=== PATIENT | male | born 1940 | race Caucasian/White ===

== ENCOUNTER 2022-11-16 08:51 | Outpatient (RCR) | payer MEDICARE, SELFPAY ==
--- NOTE | ~2022-11-16 | XR_ITS ---
EXAMINATION: XR FOOT, LEFT CLINICAL INFORMATION: Healing wound, rule out osteomyelitis COMPARISON: None available. TECHNIQUE: AP, lateral, and oblique views of the left foot. FINDINGS: No fracture or dislocation. Well corticated osseous fragment adjacent to the head of the first metatarsal may reflect sequelae of remote avulsion injury. Cortical erosion is noted along the first MTP joint involving the medial cuneiform which could be seen in setting of erosive arthropathy. Generalized osteopenia. Moderate degenerative changes of the foot with osteophytosis of the dorsal midfoot and interphalangeal joints and large plantar calcaneal spurs and Achilles tendon enthesophytes. No periosteal reaction, focal cortical erosion or periostitis to favor osteomyelitis however MRI would be more sensitive for evaluation. No joint effusion. Atherosclerotic vascular calcification. Soft tissue swelling along the medial aspect of the first metatarsophalangeal joint. XR/XR foot LT min 3V IMPRESSION: 1. Cortical erosion is noted along the first MTP joint involving the medial cuneiform which could be seen in setting of erosive arthropathy. 2. No periosteal reaction, focal cortical erosion or periostitis to favor osteomyelitis however MRI would be more sensitive for evaluation. 3. Soft tissue swelling along the medial aspect of the first metatarsophalangeal joint. 4. Generalized osteopenia. 5. Moderate degenerative changes of the foot. 6. Atherosclerotic vascular calcification.
--- NOTE | ~2022-11-16 | XR_ITS ---
EXAMINATION: XR ANKLE, LEFT CLINICAL INFORMATION: Left heel wound COMPARISON: Previous left foot x-ray October 2022 TECHNIQUE: AP, lateral, and mortise views of the left ankle. FINDINGS: Bone alignment is normal. No fracture or dislocation. The ankle mortise is normal. There are large calcaneal spur spurs at the Achilles tendon insertion plantar calcaneus. There is slight cortical irregularity along the posterior superior calcaneus seen on the lateral view just anterior to the spur..There is soft tissue arterial calcification. There is soft tissue loss over the upper calcaneal. XR/XR ankle LT min 3V IMPRESSION: Large calcaneal spurs at the Achilles tendon insertion and plantar calcaneus. Slight cortical irregularity along the posterior superior calcaneus seen on the lateral view just anterior to the spur similar to previous exam.
== END 2023-03-25 16:00 | disposition home or self-care (01) ==
LOC: HO.WCC 08:51
PROVIDERS: PCP Pediatrics; Referring Provider Podiatrist; Visit Provider Physician Assistant
DX: E11.621 Type 2 diabetes mellitus with foot ulcer (principal); E11.51 Type 2 diabetes mellitus with diabetic peripheral angiopathy without gangrene; L97.426 Non-pressure chronic ulcer of left heel and midfoot with bone involvement without evidence of necrosis; L97.516 Non-pressure chronic ulcer of other part of right foot with bone involvement without evidence of necrosis; M65.072 Abscess of tendon sheath, left ankle and foot; E11.69 Type 2 diabetes mellitus with other specified complication; M86.172 Other acute osteomyelitis, left ankle and foot; E11.40 Type 2 diabetes mellitus with diabetic neuropathy, unspecified; I11.0 Hypertensive heart disease with heart failure; I50.9 Heart failure, unspecified; Z89.411 Acquired absence of right great toe
CPT/HCPCS: 11042; 11043; 11044; 73610; 73630; 88304; 88305; 88307; 88311; 97597; 99214

== ENCOUNTER 2023-02-22 09:07 | Inpatient (IN) | payer MEDICARE, SELFPAY ==
--- NOTE | ~2023-02-22 | XR_ITS ---
EXAMINATION: XR ANKLE LEFT XR FOOT LEFT CLINICAL INFORMATION: Chronic wound. Evaluate for osteomyelitis. COMPARISON: Radiographs from 01/04/2023 TECHNIQUE: Left ankle, 3 views Left foot, 4 views FINDINGS: Ankle: There are peripheral vascular calcifications. Soft tissue wound posterior to the calcaneus in region of distal Achilles insertion. The underlying bone is grossly intact. There is no overt erosion or new sclerotic change within the calcaneus. Again noted are prominent enthesophytes of the calcaneus. Soft tissues are swollen around the ankle. The ankle mortise is intact. The talar dome is well-positioned within the mortise. The tibiotalar joint space is maintained. Old well-corticated ossicles project distal to the medial malleolus. Foot: No acute osseous abnormality. There appears to be chronic mild hindfoot valgus deformity. Mild osteoarthritis of talonavicular joint. Osteophytes also noted at margins of navicular-cuneiform and first tarsometatarsal joints. Mild osteoarthritis of great toe metatarsophalangeal joint. Incidentally noted is an old small well-corticated ossicle medial aspect of first metatarsal head. No erosions or periostitis. XR/XR ankle LT min 3V IMPRESSION: * No radiographic evidence of osteomyelitis in the left ankle or foot. * A soft tissue wound projects over region of the bursal projection of the calcaneus (region of the Achilles insertion). * Soft tissues are swollen around the ankle and proximal foot. * There is osteoarthritis of several joints, as noted above.
--- NOTE | ~2023-02-22 | US_ITS ---
EXAMINATION: Noninvasive assessment of the left lower extremities with ARTERIAL DUPLEX. CLINICAL INFORMATION: Nonhealing ulceration of the left foot TECHNIQUE: Duplex Doppler techniques with waveform analysis and measurement of velocities in the left common femoral, profunda femoris, superficial femoral, popliteal and tibial arteries were performed. COMPARISON: None FINDINGS: DIRECT DUPLEX DOPPLER FINDINGS: LEFT LEG: Common femoral artery: 103 cm/s, phasicity: Triphasic, mild calcified plaque Profunda femoris artery: 84 cm/s, phasicity: Biphasic Superficial femoral artery (proximal): 123 cm/s, phasicity: Triphasic Superficial femoral artery (mid): 73 cm/s, phasicity: Triphasic Superficial femoral artery (distal): 105 cm/s, phasicity: Triphasic, mild noncalcified plaque Popliteal artery: 110 cm/s, phasicity: Triphasic, diffuse calcified plaque Posterior tibial artery: 203 cm/s, phasicity: Triphasic. Distal segment is occluded Peroneal artery: 279 cm/s, phasicity: Monophasic US/US arterial duplex LE LT IMPRESSION: Scattered atherosclerotic plaque with patent arterial flow in the femoral and popliteal arteries. Elevated velocities with atherosclerotic plaque in the posterior tibial and peroneal arteries. The distal posterior tibial artery is occluded
--- NOTE | ~2023-02-22 | XR_ITS ---
EXAMINATION: XR ANKLE LEFT XR FOOT LEFT CLINICAL INFORMATION: Chronic wound. Evaluate for osteomyelitis. COMPARISON: Radiographs from 01/04/2023 TECHNIQUE: Left ankle, 3 views Left foot, 4 views FINDINGS: Ankle: There are peripheral vascular calcifications. Soft tissue wound posterior to the calcaneus in region of distal Achilles insertion. The underlying bone is grossly intact. There is no overt erosion or new sclerotic change within the calcaneus. Again noted are prominent enthesophytes of the calcaneus. Soft tissues are swollen around the ankle. The ankle mortise is intact. The talar dome is well-positioned within the mortise. The tibiotalar joint space is maintained. Old well-corticated ossicles project distal to the medial malleolus. Foot: No acute osseous abnormality. There appears to be chronic mild hindfoot valgus deformity. Mild osteoarthritis of talonavicular joint. Osteophytes also noted at margins of navicular-cuneiform and first tarsometatarsal joints. Mild osteoarthritis of great toe metatarsophalangeal joint. Incidentally noted is an old small well-corticated ossicle medial aspect of first metatarsal head. No erosions or periostitis. XR/XR foot LT 2V IMPRESSION: * No radiographic evidence of osteomyelitis in the left ankle or foot. * A soft tissue wound projects over region of the bursal projection of the calcaneus (region of the Achilles insertion). * Soft tissues are swollen around the ankle and proximal foot. * There is osteoarthritis of several joints, as noted above.
--- NOTE | ~2023-02-22 | MR_ITS ---
EXAMINATION: MR ANKLE WITHOUT AND WITH CONTRAST, LEFT CLINICAL INFORMATION: Elevated CRP/ESR in backdrop chronic cellulitis. COMPARISON: Radiograph dated 02/22/2023. TECHNIQUE: MRI of the ankle was performed before and after the intravenous administration of 6.5 mL gadolinium on a high-field scanner. FINDINGS: ACHILLES TENDON: The Achilles tendon is thickened at its mid substance and distal extent, measuring up to 1.3 cm AP, consistent with tendinosis. There is a superficial partial tear of the lateral margin of the tendon involving approximately 20 percent of the tendon cross-section, occurring at the deep margin of the soft tissue wound. Enthesopathic spurring is present at the Achilles tendon insertion on the calcaneus. The soft tissues surrounding the Achilles are swollen and edematous, consistent with cellulitis and deep infection related to the adjacent wound. There is a complex peripherally enhancing fluid collection surrounding the Achilles tendon over a region measuring 6 cm in length and 3 x 1.5 cm in cross-section, inclusive of the Achilles tendon, consistent with an abscess. OTHER TENDONS: There is fatty replacement of the imaged portion of the distal ankle musculature including the flexor hallucis longus muscle. A chronic high-grade tear of the posterior tibial tendon is evident at the level of the distal femoral metaphysis, involving at least three quarters of the tendon thickness with marked attenuation of the tendon over a 5 cm segment centered at the level of the medial malleolus. The other medial flexor tendons are intact. Intact peroneal and extensor tendons. LIGAMENTS: Anterior talofibular ligament is diminutive, most consistent with chronic changes of prior partial tear. Calcaneofibular and posterior talofibular ligaments are intact. Distal tibiofibular ligaments are normal. The deltoid ligament is scarred with small chronic osseous fragments, consistent with a chronic partial tear. The spring ligament is markedly thinned and irregular, likely partially torn near the navicular insertion. BONE AND ARTICULAR CARTILAGE: Intense marrow edema signal is evident at the posterior/lateral margin of the calcaneal tuberosity deep to the skin wound with areas of diminished T1 signal, and consistent with osteomyelitis. Enthesopathic spurring is present at the Achilles tendon insertion in this region. There is mild talocrural osteoarthritis with cartilage loss and subcortical cystic change at the lateral aspect of the joint. Mild osteoarthritis is also present in the posterior facet of the subtalar joint. Moderate to severe osteoarthritis is present at the articulation between the lateral cuneiform and cuboid and the navicular and cuboid. Chronic changes of a fibrous coalition in this region is possible. Osseous fragmentation is evident at the sinus tarsi and is chronic in nature. Plantar valgus angulation is evident in the foot. [id number] osteoarthritis is noted in the naviculocuneiform and tarsometatarsal joints with prominent dorsal osteophytes. JOINT FLUID AND SOFT TISSUES: Synovial inflammation is evident at the posterior recess of the subtalar joint, likely reactive to the adjacent infection. No significant effusion. Diffuse edema signal is evident in the soft tissues at the ankle. As noted above, there is a skin wound at the posterolateral aspect of the ankle and hindfoot. This measures 0.5 x 4 cm in area with a depth of up to 8 mm, extending to the level of the underlying bone and Achilles tendon, associated with the aforementioned abscess and osteomyelitis. Intrinsic foot musculature is atrophic with fatty replacement and increased T2 signal. PLANTAR FASCIA: Thickened with intermediate signal intensity at the plantar fascial origin, consistent with acute on chronic fasciitis. 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 Tarsal tunnel is unremarkable. MR/MR ankle LT wo/w con IMPRESSION: 1. Soft tissue wound at the posterolateral aspect of the ankle and hindfoot with underlying osteomyelitis at the calcaneal tuberosity, partial tear of the Achilles, and a peritendinous abscess at the Achilles tendon. 2. 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 3. Chronic partial tears of the deltoid and spring ligaments. 4. 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
[2023-02-22 09:09] VITALS: BP 160/80; PULSE 101; RESP 18; TEMP 36.6; O2SAT 97; BMI 20.4
--- NOTE | 2023-02-22 09:44 | ED_ITS ---
HPI - General Adult General Chief complaint: Wound/Laceration Stated complaint: sent from wound center, L foot wound Time Seen by Provider: 02/22/23 09:23 Source: patient Mode of arrival: ambulatory Limitations: no limitations History of Present Illness HPI narrative: 82 yold male with pmh of DM presents to the ED chronic left ankle infection not improving with oral antibiotics ( cephalexin and doxycline). Patient states he was never given doxycycline only receives Keflex. Patient sent by wound clinic to be admitted for IV antibiotics and to have infectious disease consult. Also recommend wound culture to be done. Patient states glucose has been slight elevated with this infection. left ankle and lower leg has been red. Related Data Home Medications Medication Instructions Recorded Confirmed amlodipine 10 mg tablet 10 mg PO DAILY 02/22/23 02/22/23 aspirin 81 mg chewable tablet 81 mg PO DAILY 02/22/23 02/22/23 cefuroxime axetil 250 mg tablet 250 mg PO BID 02/22/23 02/22/23 cholecalciferol (vitamin D3) 125 125 mcg PO DAILY 02/22/23 02/22/23 mcg (5,000 unit) tablet lisinopril 40 mg tablet 40 mg PO DAILY 02/22/23 02/22/23 metformin 1,000 mg tablet 1,000 mg PO BID 02/22/23 02/22/23 pravastatin 40 mg tablet 40 mg PO DAILY 02/22/23 02/22/23 tamsulosin 0.4 mg capsule 0.4 mg PO BEDTIME 02/22/23 02/22/23 Allergies Allergy/AdvReac Type Severity Reaction Status Date / Time codeine AdvReac Dizziness Verified 02/22/23 09:16 Review of Systems Review of Systems: left ankle/left lower leg redness with chronic wound Yes all other systems are reviewed and are negative [facility] Past Medical History Medical History Diabetes Social History Social History Alcohol intake: never Patient Tobacco Use Status: Never used Tobacco Smoked in Last 30 Days: No Use of substances other than those prescribed or required for medical reasons: No Advance Directives: No Advance Directives Information Provided: Yes Nutrition Risks: No Nutritional Risk Physical Exam ED Vital Signs: Vital Signs - 24 hr 02/22/23 09:09 02/22/23 10:58 Temperature 97.8 F 98.3 F Pulse Rate 101 H 88 Respiratory Rate 18 16 Blood Pressure 160/80 H 139/63 Pulse Oximetry 97 97 Oxygen Delivery Method Room Air Room Air BMI result Body Mass Index 20.4 Const General: cooperative, healthy appearing, comfortable, no acute distress, well developed, alert, awake and Physically active Orientation/consciousness: oriented to person, oriented to place, oriented to time and patient oriented x3 [facility] Head: Yes normal to inspection, Yes No palpable skull fracture present, Yes normocephalic, Yes atraumatic and No abrasion Eyes General: appearance normal, both eyes and all related structures Neck Neck: Yes normal visual inspection, Yes full ROM, Yes no lymphadenopathy, Yes no meningeal signs, Yes trachea midline, Yes supple, No anterior neck swelling and No tender Chest Chest palpation & inspection: normal inspection of the chest and normal palpation of entire chest wall Resp Effort & Inspection: normal respiratory effort and able to speak in complete sentences Auscultation: clear to auscultation bilaterally Cardio Jugular venous distension: no JVD Heart sounds: S1 normal heart sound present and S2 normal heart sound present GI Inspection: Yes normal to inspection and No abdominal wall ecchymosis Palpation (GI): Soft to palpation, not firm, nontender, no guarding and not rigid General: No CVA tenderness and Yes no CVA tenderness Back/Spine/Pelvis Back: no CVA tenderness, No CVA tenderness and No back tenderness Skin General skin exam: no rashes or lesions noted and elasticity normal Neuro General: oriented to person, oriented to place, oriented to time, patient oriented x3, gait normal, tone normal, moves all extremities, Normal light touch and pain sensation, no meningeal signs, no focal motor deficits, CN's II-XI intact bilaterally and normal sensation to monofilament Extrem Other: Psych Appearance: grossly normal, well kempt and not disheveled Course Reevaluation(s) Reevaluation #1: Labs drawn repeat x-ray ordered. Will contact hospitalist Time: 09:30 Reevaluation #2: Case discussed with hospitalist Dr. Hopkins recommend starting patient on van comycin and Zosyn. ESR CRP elevated. Awaiting x-ray results. Lactic 2.4 Time: 10:45 Medications Administered Generic Name Dose Route Start Last Admin Trade Name Freq PRN Reason Stop Dose Admin Enoxaparin Sodium 40 mg 02/22/23 12:00 02/22/23 12:41 Enoxaparin Sodium 40 Mg/0.4 Ml Syringe SUBCUT 40 mg Q24H MORGAN Administration Discontinued Medications Generic Name Dose Route Start Last Admin Trade Name Freq PRN Reason Stop Dose Admin Sodium Chloride 1,000 mls @ 999 mls/hr 02/22/23 10:26 02/22/23 12:26 Ns IV 02/22/23 11:26 Infused .Q1H1M STA Infusion Sodium Chloride 1,000 mls @ 999 mls/hr 02/22/23 10:27 02/22/23 12:26 Ns IV 02/22/23 11:27 Infused .Q1H1M STA Infusion Piperacillin Sod/Tazobactam 50 mls @ 100 mls/hr 02/22/23 10:59 02/22/23 12:26 Sod 3.375 gm/ Sodium Chloride IV 02/22/23 11:28 Infused ONCE ONE Infusion Vancomycin HCl 1,500 mg/ 500 mls @ 333.333 mls/hr 02/22/23 11:01 02/22/23 14:04 Sodium Chloride IV 02/22/23 12:30 Infused ONCE ONE Infusion Medical Decision Making Medical Decision Making MDM Narrative: 82-year-old male with left foot leg cellulitis wound not responding to antibiotics with known chronic osteomyelitis. Patient sent from Wound Clinic for IV antibiotics. ESR CRP elevated. Patient will be admitted for MRI and infection disease consultation. X-ray negative for osteomyelitis. Patient started on IV antibiotics. Differential Diagnosis Differential Diagnoses: The differential diagnosis associated with the presentation includes (Cellulitis, wound infection, diabetic foot, osteomyelitis.) Admission/Observation Consideration of admission/observation: Escalation of care including admission/observation considered Consult Healthcare Provider Management of the patient was discussed with: Hospitalist (Dr. Hopkins) Lab Data [facility] [place] Lab Attestation statement: I reviewed the patient's lab results. 02/22/23 09:53 02/22/23 09:53 Labs: Lab Results 02/22/23 02/22/23 02/22/23 Range/Units 09:53 09:53 09:53 WBC 10.4 (4.8-10.8) X10*3/uL RBC 3.85 L (4.60-5.80) X10*6/uL Hgb 12.0 L (14.0-18.0) g/dl Hct 35.2 L (42.0-52.0) % MCV 91.4 (80.0-98.0) fL MCH 31.2 (27.0-33.0) pg MCHC 34.1 (31.0-36.0) g/dl RDW 12.0 (11.0-16.0) % Plt Count 434 H (160-400) X10*3/uL MPV 9.2 L (9.4-12.4) fL Immature Gran % (Auto) 2.9 H (0.0-0.4) % Neut % (Auto) 78.0 H (45-73) % Lymph % (Auto) 11.3 L (20-40) % [place] % (Auto) 6.5 (2-11) % Eos % (Auto) 0.9 (0-4) % Baso % (Auto) 0.4 (0-2) % Lymph # (Auto) 1.2 (1.2-4.9) X10*3/uL [place] # (Auto) 0.7 (0.1-1.2) X10*3/uL Eos # (Auto) 0.1 (0.0-0.4) X10*3/uL Baso # (Auto) 0.0 (0.0-0.2) X10*3/uL Abs Immat Gran (auto) 0.30 H (0.00-0.03) X10*3/uL Absolute Neuts (auto) 8.1 (2.0-8.3) x10*3/uL Absolute Nucleated RBC 0.000 (0.0-0.012) X10*3/uL Nucleated RBC % (auto) 0.0 (0.0-0.2) /100WBC ESR 76 H (0-15) MM/HR Sodium 134 L (135-145) mmol/L Potassium 4.0 (3.3-5.1) mmol/L Chloride 98 (96-108) mmol/L Carbon Dioxide 26 (22-29) mmol/L Anion Gap 14 (12-20) BUN 17 H (9-16) mg/dL Creatinine 0.79 (0.5-1.4) mg/dL Estim Creat Clear Calc 65.6 Estimated GFR > 60 Random Glucose 262 H (60-115) mg/dL Lactic Acid (0.5-2.0) mmol/L Calcium 9.6 (8.4-10.2) mg/dL Total Bilirubin 0.3 (0.0-1.0) mg/dL AST 10 (5-37) U/L ALT 7 (0-40) U/L Alkaline Phosphatase 68 (39-117) U/L C-Reactive Protein 5.65 H (< or = 0.50) mg/dL Total Protein 7.6 (6.5-8.0) g/dL Albumin 3.4 L (3.5-5.0) g/dL 02/22/23 Range/Units 09:53 WBC (4.8-10.8) X10*3/uL RBC (4.60-5.80) X10*6/uL Hgb (14.0-18.0) g/dl Hct (42.0-52.0) % MCV (80.0-98.0) fL MCH (27.0-33.0) pg MCHC (31.0-36.0) g/dl RDW (11.0-16.0) % Plt Count (160-400) X10*3/uL MPV (9.4-12.4) fL Immature Gran % (Auto) (0.0-0.4) % Neut % (Auto) (45-73) % Lymph % (Auto) (20-40) % [place] % (Auto) (2-11) % Eos % (Auto) (0-4) % Baso % (Auto) (0-2) % Lymph # (Auto) (1.2-4.9) X10*3/uL [place] # (Auto) (0.1-1.2) X10*3/uL Eos # (Auto) (0.0-0.4) X10*3/uL Baso # (Auto) (0.0-0.2) X10*3/uL Abs Immat Gran (auto) (0.00-0.03) X10*3/uL Absolute Neuts (auto) (2.0-8.3) x10*3/uL Absolute Nucleated RBC (0.0-0.012) X10*3/uL Nucleated RBC % (auto) (0.0-0.2) /100WBC ESR (0-15) MM/HR Sodium (135-145) mmol/L Potassium (3.3-5.1) mmol/L Chloride (96-108) mmol/L Carbon Dioxide (22-29) mmol/L Anion Gap (12-20) BUN (9-16) mg/dL Creatinine (0.5-1.4) mg/dL Estim Creat Clear Calc Estimated GFR Random Glucose (60-115) mg/dL Lactic Acid 2.4 H* (0.5-2.0) mmol/L Calcium (8.4-10.2) mg/dL Total Bilirubin (0.0-1.0) mg/dL AST (5-37) U/L ALT (0-40) U/L Alkaline Phosphatase (39-117) U/L C-Reactive Protein (< or = 0.50) mg/dL Total Protein (6.5-8.0) g/dL Albumin (3.5-5.0) g/dL Independent Interpretation I performed an independent interpretation of an: Plain X-Ray Radiology Impression Discussion of test interpretation with radiology: I have reviewed the radiologist's reading. Independent Historian Clinical information obtained from an independent historian. History obtained from or confirmed by: Spouse and Other (Wound clinic) Prescription Management I considered prescription management with: Antibiotic Discharge Plan Discharge Clinical Impression: Diabetic foot ulcer, Cellulitis, Wound infection Patient Disposition: Admitted As Inpatient
[2023-02-22 10:02] LABS: MANUAL DIFF FLAG NO
[2023-02-22 10:07] LABS: Basophils Percent Auto 0.4 % (0-2); Eosinophils Absolute Auto 0.1 X10*3/uL (0.0-0.4); Eosinophils Percent Auto 0.9 % (0-4); Hematocrit 35.2 % (42.0-52.0); Imm Gran Pct Auto 2.9 % (0.0-0.4); Lymphocytes Absolute Auto 1.2 X10*3/uL (1.2-4.9); Lymphocytes Percent Auto 11.3 % (20-40); Mean Corpuscular HGB Conc 34.1 g/dl (31.0-36.0); Mean Corpuscular Hemoglobin 31.2 pg (27.0-33.0); Mean Corpuscular Volume 91.4 fL (80.0-98.0); Mean Platelet Volume 9.2 fL (9.4-12.4); Monocytes Absolute Auto 0.7 X10*3/uL (0.1-1.2); Monocytes Percent Auto 6.5 % (2-11); Neutrophils Absolute Auto 8.1 x10*3/uL (2.0-8.3); Platelet Count 434 X10*3/uL (160-400); Red Blood Count 3.85 X10*6/uL (4.60-5.80); White Blood Count 10.4 X10*3/uL (4.8-10.8)
[2023-02-22 10:26] LABS: Lactic Acid 2.4 mmol/L (0.5-2.0)
[2023-02-22 10:28] LABS: Alanine Aminotransferase 7 U/L (0-40); Albumin Level 3.4 g/dL (3.5-5.0); Alkaline Phosphatase 68 U/L (39-117); Anion Gap 14 (12-20); Aspartate Amino Transferase 10 U/L (5-37); Bilirubin Total 0.3 mg/dL (0.0-1.0); Blood Urea Nitrogen 17 mg/dL (9-16); C Reactive Protein 5.65 mg/dL (< or = 0.50); Calcium 9.6 mg/dL (8.4-10.2); Carbon Dioxide 26 mmol/L (22-29); Chloride 98 mmol/L (96-108); Creatinine Clr Calc Pharmacy 65.6; Estimated Glomerular Filt Rate > 60; Glucose Random 262 mg/dL (60-115); Sodium 134 mmol/L (135-145); Total Protein 7.6 g/dL (6.5-8.0)
[2023-02-22] MEDS: 0.9 % Sodium Chloride 1,000 ML 999 ML IV ×2 (10:55→10:56)
[2023-02-22 10:56] LABS: Erythrocyte Sedimentation Rate 76 MM/HR (0-15)
[2023-02-22 10:58] VITALS: BP 139/63; PULSE 88; RESP 16; TEMP 36.8; O2SAT 97
--- NOTE | 2023-02-22 11:01 | PC.NURSE ---
Addendum entered by Holly Miller 02/22/23 11:18: wound on right foot is on second toe Original Note: pt aox4, coming from wound clinic with diabetic foot wound on bottom and sidof left foot. additional small wound on right 1st toe is bandaged. wound clinic sent pt for IV antibiotics. fluids infusing per oct. drum drier on, will ctm
--- NOTE | 2023-02-22 11:08 | PM.IMHP ---
History of Present Illness Date of Service: 02/22/23 Attending physician on admission: Kamari Hopkins Chief Complaint: Left ankle wound Pt is an 82-year-old male with a PMH significant for?insulin-dependent diabetes type 2, HTN, HLD, and peripheral neuropathy in right leg who presents to the ED from Wound Care Clinic for evaluation of non healing diabetic wound of left heel concerning for osteomyelitis. Patient originally developed wound in October and has been seeing wound care clinic weekly since then. Patient had been on cephalexin and then recently prescribed doxycycline, however patient states that this was never filled by the pharmacy and he has thus not started taking it. Patient notes redness to the skin around heel and foot and extending up lower leg, new for the past week or so. Lower leg swelling which had been stable since wound. Patient had one prior wound on the 1st digit of his right foot, secondary to cutting off a callus with a razor blade. 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 Patient notes that during that time his hospital stay was prolonged due to hypotension. Patient and not clear if this was due to an adverse reaction to IV antibiotics, but patient does not carry any known allergy to antibiotics. Otherwise patient has not had any other chronic diabetic foot wounds. Patient also had vascular surgery on his left lower leg on December 17 at [facility]. Patient says surgeon was pleased with the amount of vascular flow that was reestablished. Patient complains of chronic left foot and ankle pain and chronic right leg neuropathy. Patient also has stable, chronic shortness of breath with exertion. Patient denies any acute systemic symptoms: No fever, chills, nausea, vomiting. No chest pain/pressure, palpitations. Denies abdominal pain. In the ED patient was afebrile and hemodynamically stable. Labs were significant for H&H of 12.0/35.2, ESR 76, CRP 5.65, lactic acid 2.4, random glucose 262. X-ray of left foot and ankle showed no radiographic evidence of osteomyelitis in the left ankle or foot, which did show soft tissues swollen right ankle and proximal foot. Pt was treated with 2 L normal saline, vanc and Zosyn. Pt will be admitted to the hospital for treatment further evaluation of chronic diabetic foot ulcer concerning for osteomyelitis. Review of Systems Review of Systems: Left heel wound since October Chronic left ankle and foot pain since October Redness of skin around ankle x1 week Chronic SOB No fever, chills, nausea, vomiting, diarrhea Denies chest pain/pressure, palpitations Yes all other systems are reviewed and are negative [facility] Medical History Diabetes Social History Alcohol intake: never Patient Tobacco Use Status: Never used Tobacco Smoked in Last 30 Days: No Use of substances other than those prescribed or required for medical reasons: No Advance Directives: No Advance Directives Information Provided: Yes Nutrition Risks: No Nutritional Risk Meds Allergies Allergy/AdvReac Type Severity Reaction Status Date / Time codeine AdvReac Dizziness Verified 02/22/23 09:16 Active Medications: Current Medications Sodium Chloride (Ns) 1,000 mls @ 999 mls/hr IV .Q1H1M STA Stop: 02/22/23 11:26 Last Admin: 02/22/23 10:55 Dose: 999 mls/hr Sodium Chloride (Ns) 1,000 mls @ 999 mls/hr IV .Q1H1M STA Stop: 02/22/23 11:27 Last Admin: 02/22/23 10:56 Dose: 999 mls/hr Piperacillin Sod/Tazobactam (Sod 3.375 gm/ Sodium Chloride) 50 mls @ 100 mls/hr IV ONCE ONE Stop: 02/22/23 11:28 Vancomycin HCl 1,500 mg/ (Sodium Chloride) 500 mls @ 333.333 mls/hr IV ONCE ONE Stop: 02/22/23 12:30 Pharmacy Consult (Consult Rx Vancomycin Dosing) 1 each MISCELLANE DAILY PRN PRN Reason: Consult order Home Medications Medication Instructions Recorded Confirmed Last Taken Type amlodipine 10 mg tablet 10 mg PO DAILY 02/22/23 02/22/23 02/22/23 History aspirin 81 mg chewable tablet 81 mg PO DAILY 02/22/23 02/22/23 02/22/23 History cefuroxime axetil 250 mg tablet 250 mg PO BID 02/22/23 02/22/23 02/22/23 History cholecalciferol (vitamin D3) 125 125 mcg PO DAILY 02/22/23 02/22/23 02/22/23 History mcg (5,000 unit) tablet lisinopril 40 mg tablet 40 mg PO DAILY 02/22/23 02/22/23 02/22/23 History metformin 1,000 mg tablet 1,000 mg PO BID 02/22/23 02/22/23 02/22/23 History pravastatin 40 mg tablet 40 mg PO DAILY 02/22/23 02/22/23 02/22/23 History tamsulosin 0.4 mg capsule 0.4 mg PO BEDTIME 02/22/23 02/22/23 02/21/23 History Physical Exam Vital Signs and Narrative: Vital Signs: Last Vital Signs Temp 98.3 F 02/22/23 10:58 Pulse 88 02/22/23 10:58 Resp 16 02/22/23 10:58 BP 139/63 02/22/23 10:58 Pulse Ox 97 02/22/23 10:58 O2 Del Method Room Air 02/22/23 10:58 BMI result Body Mass Index 20.4 Constitutional: Alert, in no acute distress. Mental Status: Oriented to person, place and time. Eyes: Pupils are equal, round, and reactive to light. Ear, Nose, and Throat: Oropharynx clear, mucous membranes moist. Ears and nose without deformities. Trachea midline. Respiratory: Clear to auscultation bilaterally. No wheezing, rales, or rhonchi. Cardiovascular: S1, S2 regular. No murmurs, rubs, or gallops. Gastrointestinal: Abdomen soft, non-tender, non-distended. Normal bowel sounds. Neurologic: Cranial nerves II-XII are grossly intact bilaterally. No focal neurological deficits. Moves all extremities spontaneously. Extremities: 1+ pitting edema of left lower leg. Open left heel wound with overlying area of erythema, non-draining, non-malodorous. Non-open wound on the See pictures below. Psychiatric: Normal mood and affect. Results Labs 02/22/23 09:53 02/22/23 09:53 Labs: Laboratory Results - last 24 hr 02/22/23 02/22/23 02/22/23 09:53 09:53 09:53 MCV 91.4 MCH 31.2 MCHC 34.1 RDW 12.0 Plt Count 434 H MPV 9.2 L Immature Gran % (Auto) 2.9 H Neut % (Auto) 78.0 H Lymph % (Auto) 11.3 L [place] % (Auto) 6.5 Eos % (Auto) 0.9 Baso % (Auto) 0.4 Lymph # (Auto) 1.2 [place] # (Auto) 0.7 Eos # (Auto) 0.1 Baso # (Auto) 0.0 Abs Immat Gran (auto) 0.30 H Absolute Neuts (auto) 8.1 Absolute Nucleated RBC 0.000 Nucleated RBC % (auto) 0.0 ESR 76 H Anion Gap 14 Estim Creat Clear Calc 65.6 Estimated GFR > 60 Random Glucose 262 H Lactic Acid Calcium 9.6 Total Bilirubin 0.3 AST 10 ALT 7 Alkaline Phosphatase 68 C-Reactive Protein 5.65 H Total Protein 7.6 Albumin 3.4 L 02/22/23 09:53 MCV MCH MCHC RDW Plt Count MPV Immature Gran % (Auto) Neut % (Auto) Lymph % (Auto) [place] % (Auto) Eos % (Auto) Baso % (Auto) Lymph # (Auto) [place] # (Auto) Eos # (Auto) Baso # (Auto) Abs Immat Gran (auto) Absolute Neuts (auto) Absolute Nucleated RBC Nucleated RBC % (auto) ESR Anion Gap Estim Creat Clear Calc Estimated GFR Random Glucose Lactic Acid 2.4 H* Calcium Total Bilirubin AST ALT Alkaline Phosphatase C-Reactive Protein Total Protein Albumin Assessment and Plan (1) Diabetic foot ulcer: Status: Acute (2) Cellulitis: Status: Acute Plan Pt is an 82-year-old male with a PMH significant for?voj-pwpibyd-qjmmlosve diabetes type 2, HTN, HLD, and peripheral neuropathy in right leg who presents to the ED from Wound Care Clinic for evaluation of non healing diabetic wound of left heel concerning for osteomyelitis. Pt will be admitted to the hospital for treatment further evaluation of chronic diabetic foot ulcer concerning for osteomyelitis. Question of osteomyelitis Secondary to non-healing diabetic foot ulcer of left heel Patient has been seeing Wound Care Clinic since October Developed erythema of skin around wound last week, started doxycycline but prescription was never filled by pharmacy Elevated ESR, CRP, no leukocytosis or systemic symptoms IV abx: vanc and Zosyn, started 02/22/2023 ID consult General surgery consult Hold on MRI for now pending ID input Follow cultures Non-sinulin dependent diabetes Hold metformin SSI BPH Continue tamsulosin HTN Continue home meds HLD Continue home meds Full Code Attending:?Dr. Hopkins DVT Prophylaxis: Lovenox Pt will require a hospitalization of at least two nights for treatment with IV antibiotics of nonhealing diabetic foot wound of left heel concerning for osteomyelitis. Time Spent With Patient Time: Total time managing care of this patient today ____ minutes. Quality Stroke Does the patient have a stroke diagnosis?: No VTE Prior VTE?: No VTE Risk Level:: Medical - moderate - high VTE Device Contraindication: Treatment Not Indicated VTE Drug Contraindication: N/A - Med Ordered
[2023-02-22] MEDS: Piperacillin Sodium/Tazobactam 3.375 GM in 0.9 % Sodium Chloride 50 ML IV ×3 (11:16→23:01)
[2023-02-22 11:59] LABS: Reflex Lactate? Lactic Acid Added
[2023-02-22] MEDS: vancomycin HCL 1,500 MG in 0.9 % Sodium Chloride 500 ML 333.33 MG IV (12:25)
[2023-02-22 12:28] VITALS: BP 121/61; PULSE 92; RESP 20; TEMP 37.1; O2SAT 94
[2023-02-22] MEDS: Enoxaparin Sodium 40 MG/0.4 ML SYRINGE SUBCUT (12:41)
[2023-02-22 12:45] LABS: ~Lactic Acid-LAB USE ONLY 1.5 mmol/L (0.5-2.0)
--- NOTE | 2023-02-22 13:00 | PHA.MEDREC ---
Pharmacy Consult ? Medication Reconciliation Pharmacy has completed the medication reconciliation. Patient had list of medications that matched claim history. Olayinka SethD
--- NOTE | 2023-02-22 13:41 | PC.NURSE ---
abx infusing via pump. pt eating lunch, no distress noted. will ctm
[2023-02-22 14:04] VITALS: PULSE 94; RESP 13; O2SAT 95
--- NOTE | 2023-02-22 14:05 | PC.NURSE ---
pt using urinal and continues to void light yellow clear urine. 1000ml output at this time. nancy cont to evaluate
--- NOTE | 2023-02-22 14:06 | PHA.PROG ---
Admission Date/Time: February 22, 2023 11:49 Indication: Bone and Joint Weight in k.41 kg Adjusted body weight in K.5 kg [place] body weight in K kg Obesity Dosing Indication % IBW: n/a Serum Creatinine - Last 168 Hours 02/22/23 09:53 Creatinine 0.79 Estimated CrCl and GFR - Last 168 Hours 02/22/23 09:53 Estim Creat Clear Calc 65.6 Estimated GFR > 60 Vancomycin Loading Dose: 1500 mg Current Vancomycin Dosing Regimen: 1250 mg Q24H Date and Time for next Vancomycin Level to be drawn: 02/25 @ 1000 Pharmacist Comments on Vancomycin Plan: Patient received vancomycin 1500 mg load dose in the ER 02/22 @ 1230. Maintenance dose vancomycin 1250 mg Q24H is scheduled to start 02/23 @ 1200. Expected AUC 451 with a trough of 12.4 We are slighly cautious due to patients age, and since patient TBW is less the IBW there SCr could be false low. Trough is schedule for prior to 4th dose Pharmacy will continue to monitor renal function daily Erin Lees PharmD Vancomycin dosing will take advantage of Service Seeking as a clinical decision support tool that uses Bayesian modeling to calculate individual patient's pharmacokinetic parameters and forecast the patient's drug concentration time course with the target goal AUC 24 range of 400 - 600 mg/L/hr.
--- NOTE | 2023-02-22 14:51 | PC.NURSE ---
pt to overflow
[2023-02-22 15:11] VITALS: BP 141/65; PULSE 92; RESP 20; TEMP 36.9; O2SAT 96
[2023-02-22 16:20] LABS: Glucose, Whole Blood 226 mg/dL (60-115)
--- NOTE | 2023-02-22 17:22 | P.CNID_ITS ---
History of Present Illness Data of Consult Service Date: 02/22/23 Requesting physician: Kamrai Hopkins Primary Care Provider: Nonstaff Physician HPI Reason for consult: nonhealing lateral left foot ulcer He mentions nonhealing left foot ulcer since October. He has no fever or chills. He has been [facility]. XRay is negative of foot He is on Vancomycin and Zosyn Review of Systems Review of Systems: Yes all other systems are reviewed and are negative PMFSH Past Medical History Medical History Diabetes Family History Family history: reviewed and not pertinent Social History Social History Alcohol intake: never Patient Tobacco Use Status: Never used Tobacco Smoked in Last 30 Days: No Use of substances other than those prescribed or required for medical reasons: No Advance Directives: No Advance Directives Information Provided: Yes Nutrition Risks: No Nutritional Risk Meds Allergies Allergy/AdvReac Type Severity Reaction Status Date / Time codeine AdvReac Dizziness Verified 02/22/23 09:16 Active Medications: Current Medications Acetaminophen (Acetaminophen 325 Mg Tablet) 650 mg PO Q6H PRN PRN Reason: Pain, Mild (Pain Scale 1-3) Amlodipine Besylate (Amlodipine Besylate 10 Mg Tablet) 10 mg PO DAILY [facility]; Protocol Aspirin (Aspirin 81 Mg Tab.Chew) 81 mg PO DAILY [facility] Dextrose (Dextrose 50 % 25 Gm/50 Ml Syringe) 25 gm IVPUSH Q15M PRN; Protocol PRN Reason: per Hypoglycemia Standing Ord. Docusate Sodium (Docusate Sodium 100 Mg Capsule) 100 mg PO DAILY PRN PRN Reason: Constipation Enoxaparin Sodium (Enoxaparin Sodium 40 Mg/0.4 Ml Syringe) 40 mg SUBCUT Q24H [facility] Last Admin: 02/22/23 12:41 Dose: 40 mg Glucose (Glucose Gel 15 Gm Gel..Gram.) 15 gm PO Q15M PRN; Protocol PRN Reason: per Hypoglycemia Standing Ord. Piperacillin Sod/Tazobactam (Sod 3.375 gm/ Sodium Chloride) 50 mls @ 100 mls/hr IV Q6H [facility] Vancomycin HCl 1,250 mg/ (Sodium Chloride) 250 mls @ 166.667 mls/hr IV Q24H [facility] Insulin Human Lispro (Insulin Lispro 100 Unit/Ml 3 Ml Vial) 0 unit SUBCUT QIDACHS [facility]; Protocol Lisinopril (Lisinopril 40 Mg Tablet) 40 mg PO DAILY [facility]; Protocol Ondansetron HCl (Ondansetron Hcl 4 Mg/2 Ml Vial) 4 mg IVPUSH Q8H PRN PRN Reason: Nausea and Vomiting Pharmacy Consult (Consult Rx Perform Med Rec) 1 each MISCELLANE ONCE PRN PRN Reason: Consult order Pharmacy Consult (Consult Rx Vancomycin Dosing) 1 each MISCELLANE DAILY PRN PRN Reason: Consult order Pravastatin Sodium (Pravastatin Sodium 40 Mg Tablet) 40 mg PO DAILY [facility] Sodium Chloride (0.9 % Sodium Chloride Flush 3 Ml Syringe) 3 ml IVFLUSH QSHIFT [facility] Tamsulosin HCl (Tamsulosin Hcl 0.4 Mg Capsule) 0.4 mg PO BEDTIME [facility] Vitamin D (Cholecalciferol (Vitamin D3) 25 Mcg Tablet) 125 mcg PO DAILY [facility] Home Medications Medication Instructions Recorded Confirmed Last Taken Type amlodipine 10 mg tablet 10 mg PO DAILY 02/22/23 02/22/23 02/22/23 History aspirin 81 mg chewable tablet 81 mg PO DAILY 02/22/23 02/22/23 02/22/23 History cefuroxime axetil 250 mg tablet 250 mg PO BID 02/22/23 02/22/23 02/22/23 History cholecalciferol (vitamin D3) 125 125 mcg PO DAILY 02/22/23 02/22/23 02/22/23 History mcg (5,000 unit) tablet lisinopril 40 mg tablet 40 mg PO DAILY 02/22/23 02/22/23 02/22/23 History metformin 1,000 mg tablet 1,000 mg PO BID 02/22/23 02/22/23 02/22/23 History pravastatin 40 mg tablet 40 mg PO DAILY 02/22/23 02/22/23 02/22/23 History tamsulosin 0.4 mg capsule 0.4 mg PO BEDTIME 02/22/23 02/22/23 02/21/23 History Physical Exam Vital Signs: Vital Signs: Last Vital Signs Temp 98.4 F 02/22/23 15:11 Pulse 92 02/22/23 15:11 Resp 20 02/22/23 15:11 BP 141/65 H 02/22/23 15:11 Pulse Ox 96 02/22/23 15:11 O2 Del Method Room Air 02/22/23 15:11 BMI result Body Mass Index 20.4 Const: General: cooperative HEENT: Head: Yes normal to inspection Face and sinus: Yes normal facial exam Mouth: Normal oral and palatal mucosa present Teeth and gingiva: dentition normal Eyes: General: appearance normal, both eyes and all related structures Pupils: Equal, round and reactive pupils present Resp: Effort & Inspection: normal respiratory effort Cardio: Rate: regular rate Rhythm: regular rhythm GI: Palpation (GI): Soft to palpation and nontender : General: Yes no CVA tenderness Back/Spine/Pelvis: Back: no CVA tenderness Skin: General skin exam: no rashes or lesions noted Neuro: General: moves all extremities Cranial nerves: Yes Equal, round and reactive pupils present Extrem: Other: neuropathy 1 cm ulcer foot wound left heel Psych: Appearance: grossly normal Results Labs 02/22/23 09:53 02/22/23 09:53 Labs: Short CBC 02/22/23 Range/Units 09:53 WBC 10.4 (4.8-10.8) X10*3/uL Hgb 12.0 L (14.0-18.0) g/dl Hct 35.2 L (42.0-52.0) % Plt Count 434 H (160-400) X10*3/uL BMP 02/22/23 09:53 Sodium 134 L Potassium 4.0 Chloride 98 Carbon Dioxide 26 BUN 17 H Creatinine 0.79 Calcium 9.6 Liver Function 02/22/23 Range/Units 09:53 Total Bilirubin 0.3 (0.0-1.0) mg/dL AST 10 (5-37) U/L ALT 7 (0-40) U/L Alkaline Phosphatase 68 (39-117) U/L Albumin 3.4 L (3.5-5.0) g/dL Microbiology Microbiology Results: Microbiology 02/22/23 09:53 Ankle Left Gram Stain - Final Assessment and Plan (1) Wound infection: Status: Acute (2) Diabetic foot ulcer: Status: Acute There is possible osteomyelitis foot He has no organisms found so far as deep cultures taken today and are pending Plan Continue Vancomycin and Zosyn until final cultures foot back. If OM found (likely) then IV antibiotics hopefully tailored to cultures for six weeks suppression. Continue Wound Care. Time Spent With Patient Time: Total time managing care of this patient today ____ minutes.
[2023-02-22] MEDS: Insulin Lispro 100 UNIT/ML 3 ML VIAL SUBCUT ×2 (17:26→20:00)
[2023-02-22] MEDS: 0.9 % Sodium Chloride Flush 3 ML SYRINGE IVFLUSH ×2 (17:27→20:01)
[2023-02-22] MEDS: Acetaminophen 325 MG TABLET 650 MG PO (17:41)
[2023-02-22 19:59] LABS: Glucose, Whole Blood 199 mg/dL (60-115)
[2023-02-22] MEDS: Tamsulosin HCL 0.4 MG CAPSULE PO (20:00)
--- NOTE | 2023-02-22 20:02 | MHC.CM.PN ---
Addendum entered by Landy Jewell 02/24/23 15:51: NEW HCP COMPLETED, NOW NAMING HIS AND SON, SHAYY, HIS PRIMARY AND ALTERNATE AGENTS RESPECTIVELY Original Note: IMM 02/22. A&Ox4/ Lives with . Has bilateral hearing aides, cane and walker. Independent. Had been driving. Poor ambulation due to pain for about a week. Cellulitis. Weekly [place] [facility]. Non-healing L heal ulcer. changes dressing every 2 days. No service. Fully vax with [facility]. D/C plan pending gen surgery and ID input and MDR's. ? osteomyelitis. May need Home IV antibiotic therapy. Pt agreeable to home with [facility] if needed. No referrals placed yet. THRIVE assessment negative. will transport home. CM will follow for discharge planning.
--- NOTE | 2023-02-22 20:38 | PC.NURSE ---
A&OX3, pleasant and cooperative. Very [place]. LS-CTA. No cough or SOB. BS+. POC obtained and covered per sliding scale. HS snack given. Pt awake and watching tv. LFA IV patent without issues. Pt voiding clear yellow urine in urinal. Pt states he ambulates with a cane. Bed alarm on for safety. Call morrow, urinal and belongings within pts reach. Will continue to monitor.
[2023-02-22 23:26] VITALS: BP 135/73; PULSE 74; RESP 18; TEMP 37; O2SAT 94
[2023-02-23] MEDS: Acetaminophen 325 MG TABLET 650 MG PO (02:55)
[2023-02-23 04:57] LABS: Hematocrit 31.1 % (42.0-52.0); Hemoglobin 10.6 g/dl (14.0-18.0); Mean Corpuscular HGB Conc 34.1 g/dl (31.0-36.0); Mean Corpuscular Hemoglobin 31.2 pg (27.0-33.0); Mean Corpuscular Volume 91.5 fL (80.0-98.0); Mean Platelet Volume 9.2 fL (9.4-12.4); Platelet Count 377 X10*3/uL (160-400); Red Cell Distribution Width 12.1 % (11.0-16.0); White Blood Count 9.5 X10*3/uL (4.8-10.8)
[2023-02-23 05:13] LABS: Anion Gap 14 (12-20); Blood Urea Nitrogen 13 mg/dL (9-16); Calcium 9.2 mg/dL (8.4-10.2); Carbon Dioxide 25 mmol/L (22-29); Chloride 102 mmol/L (96-108); Creatinine Clr Calc Pharmacy 67.3; Estimated Glomerular Filt Rate > 60; Glucose Random 216 mg/dL (60-115); Potassium 3.8 mmol/L (3.3-5.1); Sodium 137 mmol/L (135-145)
[2023-02-23] MEDS: Piperacillin Sodium/Tazobactam 3.375 GM in 0.9 % Sodium Chloride 50 ML IV ×4 (05:41→23:46)
[2023-02-23 07:30] LABS: Glucose, Whole Blood 215 mg/dL (60-115)
[2023-02-23 07:54] VITALS: BP 137/71; PULSE 78; RESP 20; TEMP 36.6; O2SAT 95
[2023-02-23] MEDS: lisinopriL 40 MG TABLET PO (08:18)
[2023-02-23] MEDS: amLODIPine Besylate 10 MG TABLET PO (08:18)
[2023-02-23] MEDS: Cholecalciferol (Vitamin D3) 25 MCG TABLET 125 MCG PO (08:18)
[2023-02-23] MEDS: Aspirin 81 MG TAB.CHEW PO (08:18)
[2023-02-23] MEDS: Pravastatin Sodium 40 MG TABLET PO (08:18)
[2023-02-23] MEDS: Insulin Lispro 100 UNIT/ML 3 ML VIAL SUBCUT ×4 (08:19→21:23)
[2023-02-23] MEDS: 0.9 % Sodium Chloride Flush 3 ML SYRINGE IVFLUSH ×3 (08:23→21:23)
--- NOTE | 2023-02-23 10:24 | P.PNIM_ITS ---
Subjective Subjective Date of Service: 02/23/23 Interval History: Intermittent pain left ankle; states improved since admission Review of Systems Denies chest pain Denies shortness of breath Denies nausea vomiting diarrhea Denies fever Physical Exam Vital Signs: Vital Signs: Last Vital Signs Temp 98 F 02/23/23 07:54 Pulse 78 02/23/23 07:54 Resp 20 02/23/23 07:54 BP 137/71 02/23/23 07:54 Pulse Ox 95 02/23/23 07:54 O2 Del Method Room Air 02/23/23 07:54 BMI result Body Mass Index 20.4 Const: Other: No acute distress Resp: Other: Clear to auscultation bilaterally no rales rhonchi or wheezes Cardio: Other: No S4; positive S1-S2; no S3 murmurs rubs or gallops GI: Other: Soft nontender nondistended normoactive bowel sounds Extrem: Other: Nonhealing ulcer left lower ankle in/foot Objective Data Active Medications Acetaminophen (Acetaminophen 325 Mg Tablet) 650 mg PO Q6H PRN PRN Reason: Pain, Mild (Pain Scale 1-3) Last Admin: 02/23/23 02:55 Dose: 650 mg Documented By: RYANNE Amlodipine Besylate (Amlodipine Besylate 10 Mg Tablet) 10 mg PO DAILY [facility]; Protocol Last Admin: 02/23/23 08:18 Dose: 10 mg Documented By: SHANA Aspirin (Aspirin 81 Mg Tab.Chew) 81 mg PO DAILY [facility] Last Admin: 02/23/23 08:18 Dose: 81 mg Documented By: SHANA Dextrose (Dextrose 50 % 25 Gm/50 Ml Syringe) 25 gm IVPUSH Q15M PRN; Protocol PRN Reason: per Hypoglycemia Standing Ord. Docusate Sodium (Docusate Sodium 100 Mg Capsule) 100 mg PO DAILY PRN PRN Reason: Constipation Enoxaparin Sodium (Enoxaparin Sodium 40 Mg/0.4 Ml Syringe) 40 mg SUBCUT Q24H [facility] Last Admin: 02/22/23 12:41 Dose: 40 mg Documented By: DOMINGO Glucose (Glucose Gel 15 Gm Gel..Gram.) 15 gm PO Q15M PRN; Protocol PRN Reason: per Hypoglycemia Standing Ord. Piperacillin Sod/Tazobactam (Sod 3.375 gm/ Sodium Chloride) 50 mls @ 100 mls/hr IV Q6H [facility] Last Infusion: 02/23/23 06:11 Dose: 0 mls/hr Documented By: RYANNE Vancomycin HCl 1,250 mg/ (Sodium Chloride) 250 mls @ 166.667 mls/hr IV Q24H [facility] Insulin Human Lispro (Insulin Lispro 100 Unit/Ml 3 Ml Vial) 0 unit SUBCUT QIDACHS [facility]; Protocol Last Admin: 02/23/23 08:19 Dose: 4 unit Documented By: SHANA Lisinopril (Lisinopril 40 Mg Tablet) 40 mg PO DAILY [facility]; Protocol Last Admin: 02/23/23 08:18 Dose: 40 mg Documented By: SHANA Ondansetron HCl (Ondansetron Hcl 4 Mg/2 Ml Vial) 4 mg IVPUSH Q8H PRN PRN Reason: Nausea and Vomiting Pharmacy Consult (Consult Rx Perform Med Rec) 1 each MISCELLANE ONCE PRN PRN Reason: Consult order Pharmacy Consult (Consult Rx Vancomycin Dosing) 1 each MISCELLANE DAILY PRN PRN Reason: Consult order Pravastatin Sodium (Pravastatin Sodium 40 Mg Tablet) 40 mg PO DAILY [facility] Last Admin: 02/23/23 08:18 Dose: 40 mg Documented By: SHANA Sodium Chloride (0.9 % Sodium Chloride Flush 3 Ml Syringe) [facility] Last Admin: 02/23/23 08:23 Dose: 3 ml Documented By: SHANA Tamsulosin HCl (Tamsulosin Hcl 0.4 Mg Capsule) 0.4 mg PO BEDTIME [facility] Last Admin: 02/22/23 20:00 Dose: 0.4 mg Documented By: RYANNE Tramadol HCl (Tramadol Hcl 50 Mg Tablet) 50 mg PO Q4H PRN PRN Reason: Pain, Moderate(Pain Scale 4-6) Vitamin D (Cholecalciferol (Vitamin D3) 25 Mcg Tablet) 125 mcg PO DAILY [facility] Last Admin: 02/23/23 08:18 Dose: 125 mcg Documented By: SHANA Labs 02/23/23 04:36 02/23/23 04:36 Labs: Laboratory Results - last 24 hr 02/22/23 02/22/23 02/22/23 09:53 09:53 09:53 MCV MCH MCHC RDW Plt Count MPV Absolute Nucleated RBC Nucleated RBC % (auto) ESR 76 H Anion Gap 14 Estim Creat Clear Calc 65.6 Estimated GFR > 60 POC Glucose Random Glucose 262 H Lactic Acid 2.4 H* Lactic Acid F/U @ 2Hr Calcium 9.6 Total Bilirubin 0.3 AST 10 ALT 7 Alkaline Phosphatase 68 C-Reactive Protein 5.65 H Total Protein 7.6 Albumin 3.4 L 02/22/23 02/22/23 02/22/23 12:22 16:16 19:51 MCV MCH MCHC RDW Plt Count MPV Absolute Nucleated RBC Nucleated RBC % (auto) ESR Anion Gap Estim Creat Clear Calc Estimated GFR POC Glucose 226 H 199 H Random Glucose Lactic Acid Lactic Acid F/U @ 2Hr 1.5 Calcium Total Bilirubin AST ALT Alkaline Phosphatase C-Reactive Protein Total Protein Albumin 02/23/23 02/23/23 02/23/23 04:36 04:36 07:26 MCV 91.5 MCH 31.2 MCHC 34.1 RDW 12.1 Plt Count 377 MPV 9.2 L Absolute Nucleated RBC 0.000 Nucleated RBC % (auto) 0.0 ESR Anion Gap 14 Estim Creat Clear Calc 67.3 Estimated GFR > 60 POC Glucose 215 H Random Glucose 216 H Lactic Acid Lactic Acid F/U @ 2Hr Calcium 9.2 Total Bilirubin AST ALT Alkaline Phosphatase C-Reactive Protein Total Protein Albumin Microbiology Microbiology Results: Microbiology 02/22/23 09:53 Gram Stain - Final Ankle Left Routine Culture - Preliminary Culture in progress. Assessment and Plan (1) Diabetic foot ulcer: Status: Acute (2) Cellulitis: Status: Acute Plan Pt is an 82-year-old male with a PMH significant for?vgx-[id number]-wtynnhmoq diabetes type 2, HTN, HLD, and peripheral neuropathy in right leg who [facility] for evaluation of non healing diabetic wound of left heel concerning for osteomyelitis. Pt will be admitted to the hospital for treatment further evaluation of chronic diabetic foot ulcer concerning for osteomyelitis. 1.Question of osteomyelitis -Elevated ESR, CRP,;likely Osteo -Vanco/Zosyn (2) -MRI 02/05/26 -will likely need PICC placement and 6 weeks (med tapered to cultures) 2.DMII -continue outpatient therapies -lispro correctional scale -adjust as indicated 3.HTN -acceptable control -adjust as indicated Full Code Lovenox Patient will require ongoing hospitalization for IV antibiotics to treat cellulitis/osteomyelitis. Time Spent With Patient Time: Total time managing care of this patient today ____ minutes. Quality Stroke Does the patient have a stroke diagnosis?: No VTE Prior VTE?: No VTE Risk Level:: Medical - moderate - high VTE Device Contraindication: Treatment Not Indicated VTE Drug Contraindication: N/A - Med Ordered
--- NOTE | 2023-02-23 11:12 | PM.CNGS ---
History of Present Illness Consult details Consult date: 02/23/23 Narrative: Patient was admitted yesterday with a chronic left heel ulcer and significant cellulitis of the left lower leg. Patient has marked improvement of his symptoms. On evaluation today his was also present. Chart was reviewed and patient evaluated. Patient is being followed in the wound clinic for this chronic left heel ulcer. [facility] Past Medical History Medical History Diabetes Family History Family history: reviewed and not pertinent Social History Social History Household Members: Spouse Housing: House Alcohol intake: never Patient Tobacco Use Status: Never used Tobacco service: No Meds Allergies Allergy/AdvReac Type Severity Reaction Status Date / Time codeine AdvReac Dizziness Verified 02/22/23 09:16 Active Medications: Current Medications Acetaminophen (Acetaminophen 325 Mg Tablet) 650 mg PO Q6H PRN PRN Reason: Pain, Mild (Pain Scale 1-3) Last Admin: 02/23/23 02:55 Dose: 650 mg Amlodipine Besylate (Amlodipine Besylate 10 Mg Tablet) 10 mg PO DAILY [facility]; Protocol Last Admin: 02/23/23 08:18 Dose: 10 mg Aspirin (Aspirin 81 Mg Tab.Chew) 81 mg PO DAILY [facility] Last Admin: 02/23/23 08:18 Dose: 81 mg Dextrose (Dextrose 50 % 25 Gm/50 Ml Syringe) 25 gm IVPUSH Q15M PRN; Protocol PRN Reason: per Hypoglycemia Standing Ord. Docusate Sodium (Docusate Sodium 100 Mg Capsule) 100 mg PO DAILY PRN PRN Reason: Constipation Enoxaparin Sodium (Enoxaparin Sodium 40 Mg/0.4 Ml Syringe) 40 mg SUBCUT Q24H [facility] Last Admin: 02/22/23 12:41 Dose: 40 mg Glucose (Glucose Gel 15 Gm Gel..Gram.) 15 gm PO Q15M PRN; Protocol PRN Reason: per Hypoglycemia Standing Ord. Piperacillin Sod/Tazobactam (Sod 3.375 gm/ Sodium Chloride) 50 mls @ 100 mls/hr IV Q6H [facility] Last Infusion: 02/23/23 06:11 Dose: Infused Vancomycin HCl 1,250 mg/ (Sodium Chloride) 250 mls @ 166.667 mls/hr IV Q24H [facility] Insulin Human Lispro (Insulin Lispro 100 Unit/Ml 3 Ml Vial) 0 unit SUBCUT QIDACHS [facility]; Protocol Last Admin: 02/23/23 08:19 Dose: 4 unit Lisinopril (Lisinopril 40 Mg Tablet) 40 mg PO DAILY [facility]; Protocol Last Admin: 02/23/23 08:18 Dose: 40 mg Ondansetron HCl (Ondansetron Hcl 4 Mg/2 Ml Vial) 4 mg IVPUSH Q8H PRN PRN Reason: Nausea and Vomiting Pharmacy Consult (Consult Rx Perform Med Rec) 1 each MISCELLANE ONCE PRN PRN Reason: Consult order Pharmacy Consult (Consult Rx Vancomycin Dosing) 1 each MISCELLANE DAILY PRN PRN Reason: Consult order Pravastatin Sodium (Pravastatin Sodium 40 Mg Tablet) 40 mg PO DAILY [facility] Last Admin: 02/23/23 08:18 Dose: 40 mg Sodium Chloride (0.9 % Sodium Chloride Flush 3 Ml Syringe) 3 ml IVFLUSH QSHIFT [facility] Last Admin: 02/23/23 08:23 Dose: 3 ml Tamsulosin HCl (Tamsulosin Hcl 0.4 Mg Capsule) 0.4 mg PO BEDTIME [facility] Last Admin: 02/22/23 20:00 Dose: 0.4 mg Tramadol HCl (Tramadol Hcl 50 Mg Tablet) 50 mg PO Q4H PRN PRN Reason: Pain, Moderate(Pain Scale 4-6) Vitamin D (Cholecalciferol (Vitamin D3) 25 Mcg Tablet) 125 mcg PO DAILY [facility] Last Admin: 02/23/23 08:18 Dose: 125 mcg Home Medications Medication Instructions Recorded Confirmed Last Taken Type amlodipine 10 mg tablet 10 mg PO DAILY 02/22/23 02/22/23 02/22/23 History aspirin 81 mg chewable tablet 81 mg PO DAILY 02/22/23 02/22/23 02/22/23 History cefuroxime axetil 250 mg tablet 250 mg PO BID 02/22/23 02/22/23 02/22/23 History cholecalciferol (vitamin D3) 125 125 mcg PO DAILY 02/22/23 02/22/23 02/22/23 History mcg (5,000 unit) tablet lisinopril 40 mg tablet 40 mg PO DAILY 02/22/23 02/22/23 02/22/23 History metformin 1,000 mg tablet 1,000 mg PO BID 02/22/23 02/22/23 02/22/23 History pravastatin 40 mg tablet 40 mg PO DAILY 02/22/23 02/22/23 02/22/23 History tamsulosin 0.4 mg capsule 0.4 mg PO BEDTIME 02/22/23 02/22/23 02/21/23 History Physical Exam Vital Signs: Vital Signs: Last Vital Signs Temp 98 F 02/23/23 07:54 Pulse 78 02/23/23 07:54 Resp 20 02/23/23 07:54 BP 137/71 02/23/23 07:54 Pulse Ox 95 02/23/23 07:54 O2 Del Method Room Air 02/23/23 07:54 BMI result Body Mass Index 20.4 Extrem: Other: Apparently, the cellulitis has markedly receded on my evaluation today. Patient has a chronic posterior he heel ulcer with no evidence of any acute infective process or abscess. Foot is grossly neurovascularly intact. Results Labs 02/23/23 04:36 02/23/23 04:36 Labs: Abnormal lab results 02/22/23 02/22/23 02/23/23 Range/Units 16:16 19:51 04:36 RBC 3.40 L (4.60-5.80) X10*6/uL Hgb 10.6 L (14.0-18.0) g/dl Hct 31.1 L (42.0-52.0) % MPV 9.2 L (9.4-12.4) fL POC Glucose 226 H 199 H (60-115) mg/dL Random Glucose (60-115) mg/dL 02/23/23 02/23/23 Range/Units 04:36 07:26 RBC (4.60-5.80) X10*6/uL Hgb (14.0-18.0) g/dl Hct (42.0-52.0) % MPV (9.4-12.4) fL POC Glucose 215 H (60-115) mg/dL Random Glucose 216 H (60-115) mg/dL Short CBC 02/23/23 Range/Units 04:36 WBC 9.5 (4.8-10.8) X10*3/uL Hgb 10.6 L (14.0-18.0) g/dl Hct 31.1 L (42.0-52.0) % Plt Count 377 (160-400) X10*3/uL [facility] 02/23/23 04:36 Sodium 137 Potassium 3.8 Chloride 102 Carbon Dioxide 25 BUN 13 Creatinine 0.77 Calcium 9.2 All other labs normal. Assessment and Plan (1) Cellulitis: Status: Acute (2) Diabetic foot ulcer: Status: Acute Plan Correct condition is continue current therapy in the form of IV antibiotics, local wound care and with dressing changes, and elevate the extremity as tolerated. At present, no acute surgical issues. Time Spent With Patient Time: Total time managing care of this patient today ____ minutes. Procedures Date of Service Date of Service: 02/23/23
[2023-02-23 11:16] LABS: Glucose, Whole Blood 251 mg/dL (60-115)
[2023-02-23] MEDS: Enoxaparin Sodium 40 MG/0.4 ML SYRINGE SUBCUT (11:53)
[2023-02-23] MEDS: traMADoL HCL 50 MG TABLET PO ×2 (11:54→21:22)
[2023-02-23] MEDS: vancomycin HCL 1,250 MG in 0.9 % Sodium Chloride 250 ML 166.67 MG IV (12:41)
[2023-02-23 15:17] VITALS: BP 129/66; PULSE 81; RESP 18; TEMP 37.3; O2SAT 96
[2023-02-23 16:37] LABS: Glucose, Whole Blood 172 mg/dL (60-115)
[2023-02-23 20:00] VITALS: BP 120/62; PULSE 62; RESP 18; TEMP 36.4; O2SAT 97
[2023-02-23 21:02] LABS: Glucose, Whole Blood 177 mg/dL (60-115)
[2023-02-23] MEDS: Tamsulosin HCL 0.4 MG CAPSULE PO (21:23)
[2023-02-24] MEDS: traMADoL HCL 50 MG TABLET PO ×2 (01:16→22:38)
[2023-02-24 03:11] VITALS: BP 132/63; PULSE 70; RESP 17; TEMP 36.7; O2SAT 93
[2023-02-24] MEDS: Piperacillin Sodium/Tazobactam 3.375 GM in 0.9 % Sodium Chloride 50 ML IV ×4 (06:20→22:41)
[2023-02-24 07:20] VITALS: BP 140/66; PULSE 75; RESP 17; TEMP 36.2; O2SAT 93
[2023-02-24 07:34] LABS: Glucose, Whole Blood 210 mg/dL (60-115)
[2023-02-24] MEDS: Aspirin 81 MG TAB.CHEW PO (07:45)
[2023-02-24] MEDS: 0.9 % Sodium Chloride Flush 3 ML SYRINGE IVFLUSH ×4 (07:45→22:39)
[2023-02-24] MEDS: Insulin Lispro 100 UNIT/ML 3 ML VIAL SUBCUT ×3 (07:45→20:56)
[2023-02-24] MEDS: Cholecalciferol (Vitamin D3) 25 MCG TABLET 125 MCG PO (07:45)
[2023-02-24] MEDS: lisinopriL 40 MG TABLET PO (07:45)
[2023-02-24] MEDS: amLODIPine Besylate 10 MG TABLET PO (07:45)
[2023-02-24] MEDS: Pravastatin Sodium 40 MG TABLET PO (07:45)
[2023-02-24 08:53] LABS: Creatinine Clr Calc Pharmacy 65.6; Estimated Glomerular Filt Rate > 60
--- NOTE | 2023-02-24 11:16 | P.PNIM_ITS ---
Subjective Subjective Date of Service: 02/24/23 Interval History: No acute issues overnight. Pain control adequate Review of Systems Denies chest pain Denies shortness of breath Denies nausea vomiting diarrhea Denies fever Physical Exam Vital Signs: Vital Signs: Last Vital Signs Temp 97.1 F 02/24/23 07:20 Pulse 75 02/24/23 07:20 Resp 17 02/24/23 07:20 BP 140/66 H 02/24/23 07:20 Pulse Ox 93 02/24/23 07:20 O2 Del Method Room Air 02/24/23 07:20 BMI result Body Mass Index 20.4 Const: Other: No acute distress Resp: Other: Clear to auscultation bilaterally no rales rhonchi or wheezes Cardio: Other: No S4; positive S1-S2; no S3 murmurs rubs or gallops GI: Other: Soft nontender nondistended normoactive bowel sounds Extrem: Other: Nonhealing ulcer left lower ankle in/foot Objective Data Active Medications Acetaminophen (Acetaminophen 325 Mg Tablet) 650 mg PO Q6H PRN PRN Reason: Pain, Mild (Pain Scale 1-3) Last Admin: 02/23/23 02:55 Dose: 650 mg Documented By: RYANNE Amlodipine Besylate (Amlodipine Besylate 10 Mg Tablet) 10 mg PO DAILY [facility]; Protocol Last Admin: 02/24/23 07:45 Dose: 10 mg Documented By: SHANA Aspirin (Aspirin 81 Mg Tab.Chew) 81 mg PO DAILY [facility] Last Admin: 02/24/23 07:45 Dose: 81 mg Documented By: SHANA Dextrose (Dextrose 50 % 25 Gm/50 Ml Syringe) 25 gm IVPUSH Q15M PRN; Protocol PRN Reason: per Hypoglycemia Standing Ord. Docusate Sodium (Docusate Sodium 100 Mg Capsule) 100 mg PO DAILY PRN PRN Reason: Constipation Enoxaparin Sodium (Enoxaparin Sodium 40 Mg/0.4 Ml Syringe) 40 mg SUBCUT Q24H [facility] Last Admin: 02/23/23 11:53 Dose: 40 mg Documented By: SHANA Glucose (Glucose Gel 15 Gm Gel..Gram.) 15 gm PO Q15M PRN; Protocol PRN Reason: per Hypoglycemia Standing Ord. Piperacillin Sod/Tazobactam (Sod 3.375 gm/ Sodium Chloride) 50 mls @ 100 mls/hr IV Q6H [facility] Last Infusion: 02/24/23 07:15 Dose: 0 mls/hr Documented By: SHANA Vancomycin HCl 1,250 mg/ (Sodium Chloride) 250 mls @ 166.667 mls/hr IV Q24H [facility] Last Infusion: 02/23/23 14:18 Dose: 0 mls/hr Documented By: SHANA Insulin Human Lispro (Insulin Lispro 100 Unit/Ml 3 Ml Vial) 0 unit SUBCUT QIDACHS [facility]; Protocol Last Admin: 02/24/23 07:45 Dose: 4 unit Documented By: SHANA Lisinopril (Lisinopril 40 Mg Tablet) 40 mg PO DAILY [facility]; Protocol Last Admin: 02/24/23 07:45 Dose: 40 mg Documented By: SHANA Ondansetron HCl (Ondansetron Hcl 4 Mg/2 Ml Vial) 4 mg IVPUSH Q8H PRN PRN Reason: Nausea and Vomiting Pharmacy Consult (Consult Rx Perform Med Rec) 1 each MISCELLANE ONCE PRN PRN Reason: Consult order Pharmacy Consult (Consult Rx Vancomycin Dosing) 1 each MISCELLANE DAILY PRN PRN Reason: Consult order Pravastatin Sodium (Pravastatin Sodium 40 Mg Tablet) 40 mg PO DAILY [facility] Last Admin: 02/24/23 07:45 Dose: 40 mg Documented By: SHANA Sodium Chloride (0.9 % Sodium Chloride Flush 3 Ml Syringe) 3 ml IVFLUSH QSHIFT [facility] Last Admin: 02/24/23 07:45 Dose: 3 ml Documented By: SHANA Tamsulosin HCl (Tamsulosin Hcl 0.4 Mg Capsule) 0.4 mg PO BEDTIME [facility] Last Admin: 02/23/23 21:23 Dose: 0.4 mg Documented By: REINA Tramadol HCl (Tramadol Hcl 50 Mg Tablet) 50 mg PO Q4H PRN PRN Reason: Pain, Moderate(Pain Scale 4-6) Last Admin: 02/24/23 01:16 Dose: 50 mg Documented By: REINA Vitamin D (Cholecalciferol (Vitamin D3) 25 Mcg Tablet) 125 mcg PO DAILY [facility] Last Admin: 02/24/23 07:45 Dose: 125 mcg Documented By: SHANA Labs 02/23/23 04:36 02/24/23 08:17 Labs: Laboratory Results - last 24 hr 02/23/23 02/23/23 02/23/23 11:11 16:33 20:58 Estim Creat Clear Calc Estimated GFR POC Glucose 251 H 172 H 177 H 02/24/23 02/24/23 07:18 08:17 Estim Creat Clear Calc 65.6 Estimated GFR > 60 POC Glucose 210 H Microbiology Microbiology Results: Microbiology 02/22/23 09:53 Gram Stain - Final Ankle Left Routine Culture - Preliminary Staphylococcus aureus Pseudomonas species 02/22/23 10:00 Blood Culture - Preliminary Blood - Venous No growth after 24 hours. 02/22/23 09:53 Blood Culture - Preliminary Blood - Venous No growth after 24 hours. Assessment and Plan (1) Cellulitis: Status: Acute (2) Diabetic foot ulcer: Status: Acute (3) Diabetes type 2, controlled: Status: Acute (4) Hypertension: Status: Acute Plan Pt is an 82-year-old male with a PMH significant for?[id number] diabetes type 2, HTN, HLD, and peripheral neuropathy in right leg who [facility] for evaluation of non healing diabetic wound of left heel concerning for osteomyelitis. Pt will be admitted to the hospital for treatment further evaluation of chronic diabetic foot ulcer concerning for osteomyelitis. 1.Question of osteomyelitis -Elevated ESR, CRP,;likely Osteo -Vanco/Zosyn (2) -MRI 02/25/26 -will likely need PICC placement and 6 weeks (med tapered to cultures) 2.DMII -continue outpatient therapies -lispro correctional scale -adjust as indicated 3.HTN -acceptable control -adjust as indicated Full Code Lovenox Patient will require ongoing hospitalization for IV antibiotics to treat cellulitis/osteomyelitis. Time Spent With Patient Time: Total time managing care of this patient today ____ minutes. Quality Stroke Does the patient have a stroke diagnosis?: No VTE Prior VTE?: No VTE Risk Level:: Medical - moderate - high VTE Device Contraindication: Treatment Not Indicated VTE Drug Contraindication: N/A - Med Ordered
[2023-02-24 11:21] LABS: Glucose, Whole Blood 268 mg/dL (60-115)
[2023-02-24] MEDS: Enoxaparin Sodium 40 MG/0.4 ML SYRINGE SUBCUT (12:08)
[2023-02-24] MEDS: vancomycin HCL 1,250 MG in 0.9 % Sodium Chloride 250 ML 166.7 MG IV (12:43)
--- NOTE | 2023-02-24 14:29 | PM.PNGS ---
Subjective Subjective Date of Service: 02/24/23 Interval history: No left ankle issues or complaints. Patient states swelling is less since having the extremity elevated yesterday. Physical Exam Vital Signs: Vital Signs: Last Vital Signs Temp 97.1 F 02/24/23 07:20 Pulse 75 02/24/23 07:20 Resp 17 02/24/23 07:20 BP 140/66 H 02/24/23 07:20 Pulse Ox 93 02/24/23 07:20 O2 Del Method Room Air 02/24/23 07:20 BMI result Body Mass Index 20.4 Extrem: Other: Complete resolution of cellulitis. The left ankle/heal dressing clean dry and intact. Objective Data Active Medications Acetaminophen (Acetaminophen 325 Mg Tablet) 650 mg PO Q6H PRN PRN Reason: Pain, Mild (Pain Scale 1-3) Last Admin: 02/23/23 02:55 Dose: 650 mg Documented By: RYANNE Amlodipine Besylate (Amlodipine Besylate 10 Mg Tablet) 10 mg PO DAILY [facility]; Protocol Last Admin: 02/24/23 07:45 Dose: 10 mg Documented By: SHANA Aspirin (Aspirin 81 Mg Tab.Chew) 81 mg PO DAILY [facility] Last Admin: 02/24/23 07:45 Dose: 81 mg Documented By: SHANA Dextrose (Dextrose 50 % 25 Gm/50 Ml Syringe) 25 gm IVPUSH Q15M PRN; Protocol PRN Reason: per Hypoglycemia Standing Ord. Docusate Sodium (Docusate Sodium 100 Mg Capsule) 100 mg PO DAILY PRN PRN Reason: Constipation Enoxaparin Sodium (Enoxaparin Sodium 40 Mg/0.4 Ml Syringe) 40 mg SUBCUT Q24H [facility] Last Admin: 02/24/23 12:08 Dose: 40 mg Documented By: SHANA Glucose (Glucose Gel 15 Gm Gel..Gram.) 15 gm PO Q15M PRN; Protocol PRN Reason: per Hypoglycemia Standing Ord. Piperacillin Sod/Tazobactam (Sod 3.375 gm/ Sodium Chloride) 50 mls @ 100 mls/hr IV Q6H [facility] Last Infusion: 02/24/23 12:51 Dose: 0 mls/hr Documented By: SHANA Vancomycin HCl 1,250 mg/ (Sodium Chloride) 250 mls @ 166.667 mls/hr IV Q24H [facility] Last Admin: 02/24/23 12:43 Dose: 166.7 mls/hr Documented By: SHANA Insulin Human Lispro (Insulin Lispro 100 Unit/Ml 3 Ml Vial) 0 unit SUBCUT QIDACHS [facility]; Protocol Last Admin: 02/24/23 12:08 Dose: 6 unit Documented By: SHANA Lisinopril (Lisinopril 40 Mg Tablet) 40 mg PO DAILY [facility]; Protocol Last Admin: 02/24/23 07:45 Dose: 40 mg Documented By: SHANA Ondansetron HCl (Ondansetron Hcl 4 Mg/2 Ml Vial) 4 mg IVPUSH Q8H PRN PRN Reason: Nausea and Vomiting Pharmacy Consult (Consult Rx Perform Med Rec) 1 each MISCELLANE ONCE PRN PRN Reason: Consult order Pharmacy Consult (Consult Rx Vancomycin Dosing) 1 each MISCELLANE DAILY PRN PRN Reason: Consult order Pravastatin Sodium (Pravastatin Sodium 40 Mg Tablet) 40 mg PO DAILY [facility] Last Admin: 02/24/23 07:45 Dose: 40 mg Documented By: SHANA Sodium Chloride (0.9 % Sodium Chloride Flush 3 Ml Syringe) 3 ml IVFLUSH QSHIFT [facility] Last Admin: 02/24/23 07:45 Dose: 3 ml Documented By: SHANA Tamsulosin HCl (Tamsulosin Hcl 0.4 Mg Capsule) 0.4 mg PO BEDTIME [facility] Last Admin: 02/23/23 21:23 Dose: 0.4 mg Documented By: REINA Tramadol HCl (Tramadol Hcl 50 Mg Tablet) 50 mg PO Q4H PRN PRN Reason: Pain, Moderate(Pain Scale 4-6) Last Admin: 02/24/23 01:16 Dose: 50 mg Documented By: REINA Vitamin D (Cholecalciferol (Vitamin D3) 25 Mcg Tablet) 125 mcg PO DAILY [facility] Last Admin: 02/24/23 07:45 Dose: 125 mcg Documented By: SHANA Labs 02/23/23 04:36 02/24/23 08:17 Labs: Laboratory Results - last 24 hr 02/23/23 02/23/23 02/24/23 16:33 20:58 07:18 Estim Creat Clear Calc Estimated GFR POC Glucose 172 H 177 H 210 H 02/24/23 02/24/23 08:17 11:16 Estim Creat Clear Calc 65.6 Estimated GFR > 60 POC Glucose 268 H Microbiology Microbiology Results: Microbiology 02/22/23 10:00 Blood Culture - Preliminary Blood - Venous No growth after 48 hours. 02/22/23 09:53 Blood Culture - Preliminary Blood - Venous No growth after 48 hours. 02/22/23 09:53 Gram Stain - Final Ankle Left Routine Culture - Preliminary Staphylococcus aureus Pseudomonas species Procedures Date of Service Date of Service: 02/24/23 Progress Note: A&P Assessment and plan (1) Diabetic foot ulcer: Status: Acute (2) Cellulitis: Status: Acute Plan Patient is tentatively scheduled for MRI of left ankle/heel tomorrow to evaluate for osteomyelitis. Continue local therapy. Elevate extremity, IV antibiotics, local wound care. Time Spent With Patient Time: Total time managing care of this patient today ____ minutes. Quality Stroke Does the patient have a stroke diagnosis?: No VTE Prior VTE?: No VTE Risk Level:: Medical - moderate - high VTE Device Contraindication: Treatment Not Indicated VTE Drug Contraindication: N/A - Med Ordered
[2023-02-24 15:38] VITALS: BP 134/70; PULSE 75; RESP 17; TEMP 36.5; O2SAT 96
[2023-02-24 16:32] LABS: Glucose, Whole Blood 145 mg/dL (60-115)
[2023-02-24 19:19] VITALS: BP 120/62; PULSE 79; RESP 18; TEMP 37; O2SAT 96
[2023-02-24 20:36] LABS: Glucose, Whole Blood 329 mg/dL (60-115)
[2023-02-24] MEDS: Tamsulosin HCL 0.4 MG CAPSULE PO (20:56)
[2023-02-25 03:25] VITALS: BP 129/72; PULSE 67; RESP 18; TEMP 36.4; O2SAT 94
[2023-02-25] MEDS: Piperacillin Sodium/Tazobactam 3.375 GM in 0.9 % Sodium Chloride 50 ML IV ×4 (06:05→23:11)
[2023-02-25 07:13] VITALS: BP 143/69; PULSE 71; RESP 18; TEMP 36.1; O2SAT 96
[2023-02-25 07:24] LABS: Glucose, Whole Blood 202 mg/dL (60-115)
[2023-02-25] MEDS: Insulin Lispro 100 UNIT/ML 3 ML VIAL SUBCUT ×4 (07:43→21:59)
[2023-02-25] MEDS: lisinopriL 40 MG TABLET PO (07:43)
[2023-02-25] MEDS: Pravastatin Sodium 40 MG TABLET PO (07:43)
[2023-02-25] MEDS: Aspirin 81 MG TAB.CHEW PO (07:43)
[2023-02-25] MEDS: Cholecalciferol (Vitamin D3) 25 MCG TABLET 125 MCG PO (07:44)
[2023-02-25] MEDS: amLODIPine Besylate 10 MG TABLET PO (07:44)
[2023-02-25] MEDS: 0.9 % Sodium Chloride Flush 3 ML SYRINGE IVFLUSH ×3 (07:46→22:00)
[2023-02-25 10:48] LABS: C Reactive Protein 5.39 mg/dL (< or = 0.50); Estimated Glomerular Filt Rate > 60
[2023-02-25 10:49] LABS: Vancomycin Trough 6.5 mcg/mL (10.0-20.0)
--- NOTE | 2023-02-25 10:55 | HE.PHANOTE ---
RE VANCO TROUGH WAS LOW AFTER 3 DOSES, WILL BE AGRESSIVE 1 GRAM Q12H WITH LEVEL AFTER 2 DOSES: SUSPECTED AUC 616 AND TROUGH 18, BUT PATIENT IS RUNNING LOWER THAN SUSPECTED. IF WE RUN THE MODEL UNDER FLATTENED PRIORS. AUC IS 546 AND TROUGH IS 15.3
[2023-02-25 11:17] LABS: Glucose, Whole Blood 295 mg/dL (60-115)
[2023-02-25 11:17] LABS: Estimated Average Glucose 174 mg/dL; Hemoglobin A1c % 7.7 %
[2023-02-25] MEDS: vancomycin HCL 1,000 MG in 0.9 % Sodium Chloride 250 ML 270 MG IV ×2 (11:34→22:01)
[2023-02-25] MEDS: Enoxaparin Sodium 40 MG/0.4 ML SYRINGE SUBCUT (11:35)
--- NOTE | 2023-02-25 13:22 | HO.PM.IMPN ---
Subjective Subjective Date of Service: 02/25/23 Interval History: Heel pain controlled No fever To MRI today Review of Systems Review of Systems: Yes all other systems are reviewed and are negative Physical Exam Vital Signs: Vital Signs: Last Vital Signs Temp 97 F 02/25/23 07:13 Pulse 71 02/25/23 07:13 Resp 18 02/25/23 07:13 BP 143/69 H 02/25/23 07:13 Pulse Ox 96 02/25/23 07:13 O2 Del Method Room Air 02/25/23 07:13 BMI result Body Mass Index 20.4 Gen: in no acute distress HEENT: sclera anicteric, moist mucus membranes Neck: supple Lungs: clear to auscultation bilaterally Heart: regular rate and rhythm, no murmurs Abd: soft, non-tender, non-distended Ext: no edema Skin: warm/well-perfused, L heel ulcer Neuro: alert and oriented x3, no focal findings Psych: appropriate affect Objective Data Active Medications Acetaminophen (Acetaminophen 325 Mg Tablet) 650 mg PO Q6H PRN PRN Reason: Pain, Mild (Pain Scale 1-3) Last Admin: 02/23/23 02:55 Dose: 650 mg Documented By: RYANNE Amlodipine Besylate (Amlodipine Besylate 10 Mg Tablet) 10 mg PO DAILY [facility]; Protocol Last Admin: 02/25/23 07:44 Dose: 10 mg Documented By: CECILIO Aspirin (Aspirin 81 Mg Tab.Chew) 81 mg PO DAILY [facility] Last Admin: 02/25/23 07:43 Dose: 81 mg Documented By: CECILIO Dextrose (Dextrose 50 % 25 Gm/50 Ml Syringe) 25 gm IVPUSH Q15M PRN; Protocol PRN Reason: per Hypoglycemia Standing Ord. Docusate Sodium (Docusate Sodium 100 Mg Capsule) 100 mg PO DAILY PRN PRN Reason: Constipation Enoxaparin Sodium (Enoxaparin Sodium 40 Mg/0.4 Ml Syringe) 40 mg SUBCUT Q24H [facility] Last Admin: 02/25/23 11:35 Dose: 40 mg Documented By: CECILIO Glucose (Glucose Gel 15 Gm Gel..Gram.) 15 gm PO Q15M PRN; Protocol PRN Reason: per Hypoglycemia Standing Ord. Piperacillin Sod/Tazobactam (Sod 3.375 gm/ Sodium Chloride) 50 mls @ 100 mls/hr IV Q6H [facility] Last Admin: 02/25/23 12:49 Dose: 100 mls/hr Documented By: CECILIO Vancomycin HCl 1,000 mg/ (Sodium Chloride) 270 mls @ 270 mls/hr IV Q12H [facility] Last Infusion: 02/25/23 12:49 Dose: 0 mls/hr Documented By: CECILIO Insulin Human Lispro (Insulin Lispro 100 Unit/Ml 3 Ml Vial) 0 unit SUBCUT QIDACHS [facility]; Protocol Last Admin: 02/25/23 11:35 Dose: 8 unit Documented By: CECILIO Lisinopril (Lisinopril 40 Mg Tablet) 40 mg PO DAILY [facility]; Protocol Last Admin: 02/25/23 07:43 Dose: 40 mg Documented By: CECILIO Ondansetron HCl (Ondansetron Hcl 4 Mg/2 Ml Vial) 4 mg IVPUSH Q8H PRN PRN Reason: Nausea and Vomiting Pharmacy Consult (Consult Rx Perform Med Rec) 1 each MISCELLANE ONCE PRN PRN Reason: Consult order Pharmacy Consult (Consult Rx Vancomycin Dosing) 1 each MISCELLANE DAILY PRN PRN Reason: Consult order Pravastatin Sodium (Pravastatin Sodium 40 Mg Tablet) 40 mg PO DAILY [facility] Last Admin: 02/25/23 07:43 Dose: 40 mg Documented By: CECILIO Sodium Chloride (0.9 % Sodium Chloride Flush 3 Ml Syringe) 3 ml IVFLUSH QSHIFT [facility] Last Admin: 02/25/23 07:46 Dose: 3 ml Documented By: CECILIO Tamsulosin HCl (Tamsulosin Hcl 0.4 Mg Capsule) 0.4 mg PO BEDTIME [facility] Last Admin: 02/24/23 20:56 Dose: 0.4 mg Documented By: REINA Tramadol HCl (Tramadol Hcl 50 Mg Tablet) 50 mg PO Q4H PRN PRN Reason: Pain, Moderate(Pain Scale 4-6) Last Admin: 02/24/23 22:38 Dose: 50 mg Documented By: REINA Vitamin D (Cholecalciferol (Vitamin D3) 25 Mcg Tablet) 125 mcg PO DAILY [facility] Last Admin: 02/25/23 07:44 Dose: 125 mcg Documented By: CECILIO Labs 02/23/23 04:36 02/25/23 10:16 Labs: Laboratory Results - last 24 hr 02/24/23 02/24/23 02/25/23 16:27 20:26 07:07 Estim Creat Clear Calc Estimated GFR POC Glucose 145 H 329 H 202 H Estimat Average Glucose Hemoglobin A1c % C-Reactive Protein Vancomycin Trough 02/25/23 02/25/23 02/25/23 10:16 10:16 10:16 Estim Creat Clear Calc 57.0 Estimated GFR > 60 POC Glucose Estimat Average Glucose 174 Hemoglobin A1c % 7.7 C-Reactive Protein 5.39 H Vancomycin Trough 6.5 L 02/25/23 11:12 Estim Creat Clear Calc Estimated GFR POC Glucose 295 H Estimat Average Glucose Hemoglobin A1c % C-Reactive Protein Vancomycin Trough Microbiology Microbiology Results: Microbiology 02/22/23 09:53 Gram Stain - Final Ankle Left Routine Culture - Final Methicillin Res Staph Aureus Pseudomonas aeruginosa 02/22/23 10:00 Blood Culture - Preliminary Blood - Venous No growth after 48 hours. 02/22/23 09:53 Blood Culture - Preliminary Blood - Venous No growth after 48 hours. Assessment and Plan (1) Cellulitis: Status: Acute (2) Diabetic foot ulcer: Status: Acute (3) Diabetes type 2, controlled: Status: Acute (4) Hypertension: Status: Acute Plan d#4 82yo M with DM2, HTN< HLD, peripheral neuropathy [facility] for nonhealing L heel wound concerning for underlying osteomyelitis # DM foot infection - MRI to assess for osteomyelitis - in the meanwhile, continue vanc + pip/mandeep - wound culture growing Pseudomonas aeruginosa [FQ sensitive] + MRSA - ID following - if osteo confirmed, will need 6 wk IV ABX # DM2, A1c 7.7 - lexx-dose lispro # HTN - continue amlodipine + lisinopril # VTE ppx: LMWH # dispo: anticipate home with VNA In my clinical judgment, the patient requires continued inpatient hospitalization for the following reasons: IV ABX Time Spent With Patient Time: Total time managing care of this patient today __40__ minutes. Quality Stroke Does the patient have a stroke diagnosis?: No VTE Prior VTE?: No VTE Risk Level:: Medical - moderate - high VTE Device Contraindication: Treatment Not Indicated VTE Drug Contraindication: N/A - Med Ordered
--- NOTE | 2023-02-25 13:56 | MHC.CM.PN ---
PATIENT LIKELY TO NEED PICC FOR LT IV ABX. CASE MANAGEMENT FOLLOWING FOR REFERRALS
[2023-02-25 14:38] VITALS: BMI 20.4
--- NOTE | 2023-02-25 14:45 | MHC.CLN ---
NUTRITION CONSULT FOR SKIN INTEGRITY. DIET=DIABETIC 2000 KCALS. TAKES ENSURE MAX PROTEIN AT HOME TO INCREASE PROTEIN INTAKE. ENSURE MAX BID PROVIDES ADDITIONAL 300 KCALS, 60 G PROTEIN. HAS NON HEALING DIABETIC ULCER TO LEFT ANKLE. REPORTS THAT IS EATING WELL. MILD MUSCLE MASS DEPLETION NOTED BUT COULD BE DUE TO ADVANCED AGE. FOLLOW FOR INTAKE. SEE CLINICAL NUTRITION ASSESSMENT 02/25/23.
[2023-02-25 16:00] VITALS: BP 126/63; PULSE 70; RESP 18; TEMP 36.8; O2SAT 97
[2023-02-25 16:22] LABS: Glucose, Whole Blood 167 mg/dL (60-115)
[2023-02-25 20:00] VITALS: BP 135/83; PULSE 79; RESP 18; TEMP 36.8; O2SAT 95
[2023-02-25 21:26] LABS: Glucose, Whole Blood 178 mg/dL (60-115)
[2023-02-25] MEDS: Tamsulosin HCL 0.4 MG CAPSULE PO (21:57)
[2023-02-25] MEDS: traMADoL HCL 50 MG TABLET PO (23:11)
[2023-02-26 03:27] VITALS: BP 145/74; PULSE 80; RESP 18; TEMP 36.6; O2SAT 98
[2023-02-26] MEDS: Piperacillin Sodium/Tazobactam 3.375 GM in 0.9 % Sodium Chloride 50 ML IV ×2 (06:06→13:32)
[2023-02-26 06:53] VITALS: BP 142/80; PULSE 80; RESP 18; TEMP 36; O2SAT 95
[2023-02-26 06:59] LABS: Glucose, Whole Blood 204 mg/dL (60-115)
[2023-02-26] MEDS: Aspirin 81 MG TAB.CHEW PO (07:29)
[2023-02-26] MEDS: Cholecalciferol (Vitamin D3) 25 MCG TABLET 125 MCG PO (07:29)
[2023-02-26] MEDS: amLODIPine Besylate 10 MG TABLET PO (07:29)
[2023-02-26] MEDS: Pravastatin Sodium 40 MG TABLET PO (07:29)
[2023-02-26 07:30] VITALS: BP 142/80; PULSE 80; O2SAT 95
[2023-02-26] MEDS: Insulin Lispro 100 UNIT/ML 3 ML VIAL SUBCUT ×4 (07:30→21:10)
[2023-02-26] MEDS: 0.9 % Sodium Chloride Flush 3 ML SYRINGE IVFLUSH ×3 (07:31→23:56)
[2023-02-26] MEDS: lisinopriL 40 MG TABLET PO (07:31)
[2023-02-26 09:43] LABS: Creatinine Clr Calc Pharmacy 48.4; Estimated Glomerular Filt Rate > 60; Vancomycin Random 14.3 mcg/mL (15-20)
--- NOTE | 2023-02-26 09:57 | HE.PHANOTE ---
RE VANCO SCR INCREASED AND TROUGH JUMPED BY 8. WILL LOWER DOSE TO 750 Q12H, NEXT LEVEL DUE 02/27 @0900. SUSPECTED AUC 503, TROUGH 15.7 [facility]UR[facility]
--- NOTE | 2023-02-26 12:13 | HO.PICC ---
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 Following completion of Kamuela Protocol the skin and soft tissues were anesthetized with 1% Lidocaine plain. Using ultrasound guidance, right basilic vein access was obtained twice by Lamar Castorena RN, but unable to pass guidewire. Right brachial vein was then accessed on first attempt by Vinayak Beaulieu RN. Over an 0.018 wire through peel-away sheath, a 4FR single lumen PICC line was positioned. Catheter length is 39 CM internal length, at the 0 CM sivakumar--external length, for a total trimmed length of 39 CM. The procedure was performed in S272. Tip verification was performed by Mauro Hamilton with Sherlock 3CG. Tip located in SVC. Ultrasound was used to document vein patency and for needle entry. A formal ultrasound picture and cardiac rhythm strip was recorded. [employer] has released the line for use and it is currently dressed with a StatLock, Tegaderm, and CHG disc. Verification has been performed for blood return and line patency. Arm Circumference: 25CM Equipment: [employer] Power PICC Solo Catheter Type: 4FR single lumen PASV PICC Lot #: [id number]
[2023-02-26 12:20] LABS: Glucose, Whole Blood 296 mg/dL (60-115)
[2023-02-26] MEDS: Enoxaparin Sodium 40 MG/0.4 ML SYRINGE SUBCUT (12:24)
[2023-02-26] MEDS: vancomycin HCL 750 MG in 0.9 % Sodium Chloride 250 ML 265 MG IV (12:25)
--- NOTE | 2023-02-26 12:26 | P.PNIM_ITS ---
Subjective Subjective Date of Service: 02/26/23 Interval History: heel pain controlled MRI and bone biopsy both show osteomyelitis; also has abscess around Achilles Review of Systems Review of Systems: Yes all other systems are reviewed and are negative Physical Exam Vital Signs: Vital Signs: Last Vital Signs Temp 96.8 F 02/26/23 06:53 Pulse 80 02/26/23 07:30 Resp 18 02/26/23 06:53 BP 142/80 H 02/26/23 07:30 Pulse Ox 95 02/26/23 07:30 O2 Del Method Room Air 02/26/23 06:53 BMI result Body Mass Index 20.4 Gen: in no acute distress HEENT: sclera anicteric, moist mucus membranes Neck: supple Lungs: clear to auscultation bilaterally Heart: regular rate and rhythm, no murmurs Abd: soft, non-tender, non-distended Ext: no edema Skin: warm/well-perfused, L heel ulcer Neuro: alert and oriented x3, no focal findings Psych: appropriate affect Objective Data Active Medications Acetaminophen (Acetaminophen 325 Mg Tablet) 650 mg PO Q6H PRN PRN Reason: Pain, Mild (Pain Scale 1-3) Last Admin: 02/23/23 02:55 Dose: 650 mg Documented By: RYANNE Amlodipine Besylate (Amlodipine Besylate 10 Mg Tablet) 10 mg PO DAILY [facility]; Protocol Last Admin: 02/26/23 07:29 Dose: 10 mg Documented By: SHANTAL Aspirin (Aspirin 81 Mg Tab.Chew) 81 mg PO DAILY [facility] Last Admin: 02/26/23 07:29 Dose: 81 mg Documented By: SHANTAL Dextrose (Dextrose 50 % 25 Gm/50 Ml Syringe) 25 gm IVPUSH Q15M PRN; Protocol PRN Reason: per Hypoglycemia Standing Ord. Docusate Sodium (Docusate Sodium 100 Mg Capsule) 100 mg PO DAILY PRN PRN Reason: Constipation Enoxaparin Sodium (Enoxaparin Sodium 40 Mg/0.4 Ml Syringe) 40 mg SUBCUT Q24H [facility] Last Admin: 02/25/23 11:35 Dose: 40 mg Documented By: CECILIO Glucose (Glucose Gel 15 Gm Gel..Gram.) 15 gm PO Q15M PRN; Protocol PRN Reason: per Hypoglycemia Standing Ord. Piperacillin Sod/Tazobactam (Sod 3.375 gm/ Sodium Chloride) 50 mls @ 100 mls/hr IV Q6H [facility] Last Infusion: 02/26/23 07:36 Dose: 0 mls/hr Documented By: SHANTAL Vancomycin HCl 750 mg/ Sodium (Chloride) 265 mls @ 265 mls/hr IV Q12H [facility] Insulin Human Lispro (Insulin Lispro 100 Unit/Ml 3 Ml Vial) 0 unit SUBCUT QIDACHS [facility]; Protocol Last Admin: 02/26/23 07:30 Dose: 6 unit Documented By: SHANTAL Lisinopril (Lisinopril 40 Mg Tablet) 40 mg PO DAILY [facility]; Protocol Last Admin: 02/26/23 07:31 Dose: 40 mg Documented By: SHANTAL Ondansetron HCl (Ondansetron Hcl 4 Mg/2 Ml Vial) 4 mg IVPUSH Q8H PRN PRN Reason: Nausea and Vomiting Pharmacy Consult (Consult Rx Perform Med Rec) 1 each MISCELLANE ONCE PRN PRN Reason: Consult order Pharmacy Consult (Consult Rx Vancomycin Dosing) 1 each MISCELLANE DAILY PRN PRN Reason: Consult order Pravastatin Sodium (Pravastatin Sodium 40 Mg Tablet) 40 mg PO DAILY [facility] Last Admin: 02/26/23 07:29 Dose: 40 mg Documented By: SHANTAL Sodium Chloride (0.9 % Sodium Chloride Flush 3 Ml Syringe) 3 ml IVFLUSH QSHIFT [facility] Last Admin: 02/26/23 07:31 Dose: 3 ml Documented By: SHANTAL Sodium Chloride (0.9 % Sodium Chloride Flush 10 Ml Syringe) 5 ml IVFLUSH TID [facility] Sodium Chloride (0.9 % Sodium Chloride Flush 10 Ml Syringe) 5 ml IVFLUSH ONCE ONE Stop: 02/26/23 12:33 Tamsulosin HCl (Tamsulosin Hcl 0.4 Mg Capsule) 0.4 mg PO BEDTIME [facility] Last Admin: 02/25/23 21:57 Dose: 0.4 mg Documented By: REINA Tramadol HCl (Tramadol Hcl 50 Mg Tablet) 50 mg PO Q4H PRN PRN Reason: Pain, Moderate(Pain Scale 4-6) Last Admin: 02/25/23 23:11 Dose: 50 mg Documented By: REINA Vitamin D (Cholecalciferol (Vitamin D3) 25 Mcg Tablet) 125 mcg PO DAILY [facility] Last Admin: 02/26/23 07:29 Dose: 125 mcg Documented By: SHANTAL Labs 02/23/23 04:36 02/26/23 09:00 Labs: Laboratory Results - last 24 hr 02/25/23 02/25/23 02/26/23 16:13 21:22 06:53 Estim Creat Clear Calc Estimated GFR POC Glucose 167 H 178 H 204 H Random Vancomycin 02/26/23 02/26/23 02/26/23 09:00 09:00 12:16 Estim Creat Clear Calc 48.4 Estimated GFR > 60 POC Glucose 296 H Random Vancomycin 14.3 L Impressions Ankle MRI 02/25/23 21:07 IMPRESSION: 1. Soft tissue wound at the posterolateral aspect of the ankle and hindfoot with underlying osteomyelitis at the calcaneal tuberosity, partial tear of the Achilles, and a peritendinous abscess at the Achilles tendon. 2. 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 3. Chronic partial tears of the deltoid and spring ligaments. 4. 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 Microbiology Microbiology Results: Microbiology 02/22/23 09:53 Gram Stain - Final Ankle Left Routine Culture - Final Methicillin Res Staph Aureus Pseudomonas aeruginosa Assessment and Plan (1) Cellulitis: Status: Acute (2) Diabetic foot ulcer: Status: Acute (3) Diabetes type 2, controlled: Status: Acute (4) Hypertension: Status: Acute Plan d#5 82yo M with DM2, HTN, HLD, peripheral neuropathy [facility] for nonhealing L heel wound concerning for underlying osteomyelitis # DM osteomyelitis - d#5 vanc + pip/mandeep - wound culture growing Pseudomonas aeruginosa [FQ sensitive] + MRSA - PICC placed; discuss ABX regimen with ID - Ortho consult re drainage of peritendinous abscess at Achilles # DM2, A1c 7.7 - lexx-dose lispro # HTN - continue amlodipine + lisinopril # VTE ppx: LMWH # dispo: anticipate home with VNA In my clinical judgment, the patient requires continued inpatient hospitalization for the following reasons: IV ABX, possible abscess drainage Time Spent With Patient Time: Total time managing care of this patient today __40__ minutes. Quality Stroke Does the patient have a stroke diagnosis?: No VTE Prior VTE?: No VTE Risk Level:: Medical - moderate - high VTE Device Contraindication: Treatment Not Indicated VTE Drug Contraindication: N/A - Med Ordered
--- NOTE | 2023-02-26 13:42 | MHC.CM.PN ---
Addendum entered by Tonya Hale RN 02/26/23 14:34: [facility]. WILL NEED 500 MG DAPTO FOR 6 WEEKS Original Note: PATIENT GOING TO NEED PICC AND LT IV ABX - NOT YET KNOWN WHICH. [facility] REFERRAL PLACED
[2023-02-26] MEDS: levoFLOXacin 750 MG TABLET PO (15:46)
[2023-02-26] MEDS: 0.9 % Sodium Chloride Flush 10 ML SYRINGE 5 ML IVFLUSH ×2 (15:47→21:11)
--- NOTE | 2023-02-26 15:47 | P.CONOP_ITS ---
History of Present Illness HPI Consult date: 02/26/23 Chief complaint: non healing diabetic foot wound Narrative: Mr. Perez is an 82 year old male with pmh of DM presents to the ED on 02/22/23 with chronic left ankle infection not improving with oral antibiotics ( cephalexin and doxycline). Patient states he was never given doxycycline only receives Keflex.? Patient sent by wound clinic to be admitted for IV antibiotics and to have infectious disease consult.?He has been seeing the Wound clinic since October for this problem. Review of Systems Review of Systems: Yes all other systems are reviewed and are negative PMFSH Past Medical History Medical History Diabetes Family History Family history: reviewed and not pertinent Social History Social History Household Members: Spouse Housing: House Alcohol intake: never Patient Tobacco Use Status: Never used Tobacco service: No Meds Allergies Allergy/AdvReac Type Severity Reaction Status Date / Time codeine AdvReac Dizziness Verified 02/22/23 09:16 Active Medications: Current Medications Acetaminophen (Acetaminophen 325 Mg Tablet) 650 mg PO Q6H PRN PRN Reason: Pain, Mild (Pain Scale 1-3) Last Admin: 02/23/23 02:55 Dose: 650 mg Amlodipine Besylate (Amlodipine Besylate 10 Mg Tablet) 10 mg PO DAILY [facility]; Protocol Last Admin: 02/26/23 07:29 Dose: 10 mg Aspirin (Aspirin 81 Mg Tab.Chew) 81 mg PO DAILY [facility] Last Admin: 02/26/23 07:29 Dose: 81 mg Dextrose (Dextrose 50 % 25 Gm/50 Ml Syringe) 25 gm IVPUSH Q15M PRN; Protocol PRN Reason: per Hypoglycemia Standing Ord. Docusate Sodium (Docusate Sodium 100 Mg Capsule) 100 mg PO DAILY PRN PRN Reason: Constipation Enoxaparin Sodium (Enoxaparin Sodium 40 Mg/0.4 Ml Syringe) 40 mg SUBCUT Q24H [facility] Last Admin: 02/26/23 12:24 Dose: 40 mg Glucose (Glucose Gel 15 Gm Gel..Gram.) 15 gm PO Q15M PRN; Protocol PRN Reason: per Hypoglycemia Standing Ord. Daptomycin 500 mg/ Sodium (Chloride) 60 mls @ 120 mls/hr IV Q24H [facility] Insulin Human Lispro (Insulin Lispro 100 Unit/Ml 3 Ml Vial) 0 unit SUBCUT QIDACHS [facility]; Protocol Last Admin: 02/26/23 12:24 Dose: 8 unit Levofloxacin (Levofloxacin 750 Mg Tablet) 750 mg PO Q48H [facility] Lisinopril (Lisinopril 40 Mg Tablet) 40 mg PO DAILY [facility]; Protocol Last Admin: 02/26/23 07:31 Dose: 40 mg Ondansetron HCl (Ondansetron Hcl 4 Mg/2 Ml Vial) 4 mg IVPUSH Q8H PRN PRN Reason: Nausea and Vomiting Pharmacy Consult (Consult Rx Perform Med Rec) 1 each MISCELLANE ONCE PRN PRN Reason: Consult order Sodium Chloride (0.9 % Sodium Chloride Flush 3 Ml Syringe) 3 ml IVFLUSH QSHIFT [facility] Last Admin: 02/26/23 07:31 Dose: 3 ml Sodium Chloride (0.9 % Sodium Chloride Flush 10 Ml Syringe) 5 ml IVFLUSH TID [facility] Tamsulosin HCl (Tamsulosin Hcl 0.4 Mg Capsule) 0.4 mg PO BEDTIME [facility] Last Admin: 02/25/23 21:57 Dose: 0.4 mg Tramadol HCl (Tramadol Hcl 50 Mg Tablet) 50 mg PO Q4H PRN PRN Reason: Pain, Moderate(Pain Scale 4-6) Last Admin: 02/25/23 23:11 Dose: 50 mg Vitamin D (Cholecalciferol (Vitamin D3) 25 Mcg Tablet) 125 mcg PO DAILY [facility] Last Admin: 02/26/23 07:29 Dose: 125 mcg Home Medications Medication Instructions Recorded Confirmed Last Taken Type amlodipine 10 mg tablet 10 mg PO DAILY 02/22/23 02/22/23 02/22/23 History aspirin 81 mg chewable tablet 81 mg PO DAILY 02/22/23 02/22/23 02/22/23 History cefuroxime axetil 250 mg tablet 250 mg PO BID 02/22/23 02/22/23 02/22/23 History cholecalciferol (vitamin D3) 125 125 mcg PO DAILY 02/22/23 02/22/23 02/22/23 History mcg (5,000 unit) tablet lisinopril 40 mg tablet 40 mg PO DAILY 02/22/23 02/22/23 02/22/23 History metformin 1,000 mg tablet 1,000 mg PO BID 02/22/23 02/22/23 02/22/23 History pravastatin 40 mg tablet 40 mg PO DAILY 02/22/23 02/22/23 02/22/23 History tamsulosin 0.4 mg capsule 0.4 mg PO BEDTIME 02/22/23 02/22/23 02/21/23 History Physical Exam Vital Signs: Vital Signs: Last Vital Signs Temp 96.8 F 02/26/23 06:53 Pulse 80 02/26/23 07:30 Resp 18 02/26/23 06:53 BP 142/80 H 02/26/23 07:30 Pulse Ox 95 02/26/23 07:30 O2 Del Method Room Air 02/26/23 06:53 BMI result Body Mass Index 20.4 Const: General: cooperative, healthy appearing and no acute distress Resp: Effort & Inspection: normal respiratory effort and able to speak in complete sentences Cardio: Rate: regular rate Peripheral pulses: Peripheral pulses 2+ throughout GI: Palpation (GI): Soft to palpation Skin: Lesions: no lesions Rashes: no rashes Extrem: Other: Left heel chronic ulcer. No palpable abscess. Able to dorsi/plantar flex. Sensation intact. Pedal pulse intact. Results Labs 02/23/23 04:36 02/26/23 09:00 Labs: Abnormal lab results 02/25/23 02/25/23 02/26/23 Range/Units 16:13 21:22 06:53 POC Glucose 167 H 178 H 204 H (60-115) mg/dL Random Vancomycin (15-20) mcg/mL 02/26/23 02/26/23 Range/Units 09:00 12:16 POC Glucose 296 H (60-115) mg/dL Random Vancomycin 14.3 L (15-20) mcg/mL H & H 02/22/23 02/23/23 Range/Units 09:53 04:36 Hgb 12.0 L 10.6 L (14.0-18.0) g/dl Hct 35.2 L 31.1 L (42.0-52.0) % All other labs normal. Assessment and Plan (1) Diabetes type 2, controlled: Status: Acute (2) Wound infection: Status: Acute (3) Cellulitis: Status: Acute (4) Diabetic foot ulcer: Status: Acute Plan No orthopedic intervention needed at this time Continue IV abx Dressing changes as general surgery dictates Would not recommend orthopedic drainage due to overlying ulcerated skin Time Spent With Patient Time: Total time managing care of this patient today ____ minutes. Procedures Date of Service Date of Service: 02/26/23
[2023-02-26 16:00] VITALS: BP 133/67; PULSE 83; RESP 20; TEMP 36.8; O2SAT 96
[2023-02-26 16:26] LABS: Glucose, Whole Blood 205 mg/dL (60-115)
[2023-02-26] MEDS: DAPTOmycin 500 MG in 0.9 % Sodium Chloride 50 ML 120 MG IV (16:47)
[2023-02-26 19:55] VITALS: BP 143/69; PULSE 82; RESP 20; TEMP 36.6; O2SAT 96
[2023-02-26 20:51] LABS: Glucose, Whole Blood 176 mg/dL (60-115)
[2023-02-26] MEDS: Tamsulosin HCL 0.4 MG CAPSULE PO (21:10)
[2023-02-26 23:48] VITALS: BP 148/68; PULSE 87; RESP 18; TEMP 36.8; O2SAT 97
[2023-02-27] MEDS: traMADoL HCL 50 MG TABLET PO ×2 (02:57→23:11)
[2023-02-27 06:46] LABS: Hematocrit 32.8 % (42.0-52.0); Mean Corpuscular HGB Conc 33.5 g/dl (31.0-36.0); Mean Corpuscular Hemoglobin 30.7 pg (27.0-33.0); Mean Corpuscular Volume 91.6 fL (80.0-98.0); Mean Platelet Volume 9.2 fL (9.4-12.4); Platelet Count 407 X10*3/uL (160-400); Red Blood Count 3.58 X10*6/uL (4.60-5.80); Red Cell Distribution Width 12.2 % (11.0-16.0); White Blood Count 9.2 X10*3/uL (4.8-10.8)
[2023-02-27 06:56] VITALS: BP 152/70; PULSE 85; RESP 16; TEMP 36.6; O2SAT 97
[2023-02-27 07:02] LABS: Anion Gap 11 (12-20); Blood Urea Nitrogen 15 mg/dL (9-16); C Reactive Protein 3.82 mg/dL (< or = 0.50); Calcium 9.7 mg/dL (8.4-10.2); Carbon Dioxide 26 mmol/L (22-29); Chloride 104 mmol/L (96-108); Creatinine Clr Calc Pharmacy 65.6; Estimated Glomerular Filt Rate > 60; Glucose Random 204 mg/dL (60-115); Potassium 3.6 mmol/L (3.3-5.1); Sodium 137 mmol/L (135-145)
[2023-02-27 07:09] LABS: Glucose, Whole Blood 203 mg/dL (60-115)
[2023-02-27] MEDS: Aspirin 81 MG TAB.CHEW PO (07:19)
[2023-02-27] MEDS: Cholecalciferol (Vitamin D3) 25 MCG TABLET 125 MCG PO (07:20)
[2023-02-27] MEDS: amLODIPine Besylate 10 MG TABLET PO (07:20)
[2023-02-27] MEDS: lisinopriL 40 MG TABLET PO (07:20)
[2023-02-27] MEDS: 0.9 % Sodium Chloride Flush 10 ML SYRINGE 5 ML IVFLUSH ×3 (07:21→21:19)
[2023-02-27] MEDS: 0.9 % Sodium Chloride Flush 3 ML SYRINGE IVFLUSH ×3 (07:21→21:19)
[2023-02-27] MEDS: Insulin Lispro 100 UNIT/ML 3 ML VIAL SUBCUT ×4 (07:21→21:20)
[2023-02-27 07:35] LABS: Erythrocyte Sedimentation Rate 103 MM/HR (0-15)
--- NOTE | 2023-02-27 07:43 | P.PNGS_ITS ---
Subjective Subjective Date of Service: 02/27/23 Interval history: No new issues. MRI results reviewed. Orthopedic consultation also reviewed. Physical Exam Vital Signs: Vital Signs: Last Vital Signs Temp 98 F 02/27/23 06:56 Pulse 85 02/27/23 06:56 Resp 16 02/27/23 06:56 BP 152/70 H 02/27/23 06:56 Pulse Ox 97 02/27/23 06:56 O2 Del Method Room Air 02/27/23 06:56 BMI result Body Mass Index 20.4 Extrem: Other: Left heel dressing clean dry and intact. Objective Data Active Medications Acetaminophen (Acetaminophen 325 Mg Tablet) 650 mg PO Q6H PRN PRN Reason: Pain, Mild (Pain Scale 1-3) Last Admin: 02/23/23 02:55 Dose: 650 mg Documented By: RYANNE Amlodipine Besylate (Amlodipine Besylate 10 Mg Tablet) 10 mg PO DAILY [facility]; Protocol Last Admin: 02/27/23 07:20 Dose: 10 mg Documented By: SHANTAL Aspirin (Aspirin 81 Mg Tab.Chew) 81 mg PO DAILY [facility] Last Admin: 02/27/23 07:19 Dose: 81 mg Documented By: SHANTAL Dextrose (Dextrose 50 % 25 Gm/50 Ml Syringe) 25 gm IVPUSH Q15M PRN; Protocol PRN Reason: per Hypoglycemia Standing Ord. Docusate Sodium (Docusate Sodium 100 Mg Capsule) 100 mg PO DAILY PRN PRN Reason: Constipation Enoxaparin Sodium (Enoxaparin Sodium 40 Mg/0.4 Ml Syringe) 40 mg SUBCUT Q24H [facility] Last Admin: 02/26/23 12:24 Dose: 40 mg Documented By: SHANTAL Glucose (Glucose Gel 15 Gm Gel..Gram.) 15 gm PO Q15M PRN; Protocol PRN Reason: per Hypoglycemia Standing Ord. Daptomycin 500 mg/ Sodium (Chloride) 60 mls @ 120 mls/hr IV Q24H [facility] Last Infusion: 02/26/23 17:26 Dose: 0 mls/hr Documented By: SHANTAL Insulin Human Lispro (Insulin Lispro 100 Unit/Ml 3 Ml Vial) 0 unit SUBCUT QIDACHS [facility]; Protocol Last Admin: 02/27/23 07:21 Dose: 6 unit Documented By: SHANTAL Levofloxacin (Levofloxacin 750 Mg Tablet) 750 mg PO Q48H [facility] Last Admin: 02/26/23 15:46 Dose: 750 mg Documented By: SHANTAL Lisinopril (Lisinopril 40 Mg Tablet) 40 mg PO DAILY [facility]; Protocol Last Admin: 02/27/23 07:20 Dose: 40 mg Documented By: SHANTAL Ondansetron HCl (Ondansetron Hcl 4 Mg/2 Ml Vial) 4 mg IVPUSH Q8H PRN PRN Reason: Nausea and Vomiting Pharmacy Consult (Consult Rx Perform Med Rec) 1 each MISCELLANE ONCE PRN PRN Reason: Consult order Sodium Chloride (0.9 % Sodium Chloride Flush 3 Ml Syringe) 3 ml IVFLUSH QSHIFT [facility] Last Admin: 02/27/23 07:21 Dose: 3 ml Documented By: SHANTAL Sodium Chloride (0.9 % Sodium Chloride Flush 10 Ml Syringe) 5 ml IVFLUSH TID [facility] Last Admin: 02/27/23 07:21 Dose: 5 ml Documented By: SHANTAL Tamsulosin HCl (Tamsulosin Hcl 0.4 Mg Capsule) 0.4 mg PO BEDTIME [facility] Last Admin: 02/26/23 21:10 Dose: 0.4 mg Documented By: ARMIN Tramadol HCl (Tramadol Hcl 50 Mg Tablet) 50 mg PO Q4H PRN PRN Reason: Pain, Moderate(Pain Scale 4-6) Last Admin: 02/27/23 02:57 Dose: 50 mg Documented By: SAMANTHA Vitamin D (Cholecalciferol (Vitamin D3) 25 Mcg Tablet) 125 mcg PO DAILY [facility] Last Admin: 02/27/23 07:20 Dose: 125 mcg Documented By: SHANTAL Labs 02/27/23 05:27 02/27/23 05:27 Labs: Laboratory Results - last 24 hr 02/26/23 02/26/23 02/26/23 09:00 09:00 12:16 MCV MCH MCHC RDW Plt Count MPV Absolute Nucleated RBC Nucleated RBC % (auto) ESR Anion Gap Estim Creat Clear Calc 48.4 Estimated GFR > 60 POC Glucose 296 H Random Glucose Calcium Total Creatine Kinase C-Reactive Protein Random Vancomycin 14.3 L 02/26/23 02/26/23 02/27/23 16:18 20:37 05:27 MCV MCH MCHC RDW Plt Count MPV Absolute Nucleated RBC Nucleated RBC % (auto) ESR Anion Gap 11 L Estim Creat Clear Calc 65.6 Estimated GFR > 60 POC Glucose 205 H 176 H Random Glucose 204 H Calcium 9.7 Total Creatine Kinase 48 C-Reactive Protein 3.82 H Random Vancomycin 02/27/23 02/27/23 02/27/23 05:27 05:27 06:56 MCV 91.6 MCH 30.7 MCHC 33.5 RDW 12.2 Plt Count 407 H MPV 9.2 L Absolute Nucleated RBC 0.000 Nucleated RBC % (auto) 0.0 ESR 103 H Anion Gap Estim Creat Clear Calc Estimated GFR POC Glucose 203 H Random Glucose Calcium Total Creatine Kinase C-Reactive Protein Random Vancomycin Procedures Date of Service Date of Service: 02/27/23 Progress Note: A&P Assessment and plan (1) Diabetic foot ulcer: Status: Acute Plan According to patient, tentative plan is to discharge home with continued IV antibiotics. Recommend follow-up and wound care clinic regarding left heel. He has been followed by them for last 4 months regarding his heel issue. Time Spent With Patient Time: Total time managing care of this patient today ____ minutes. Quality Stroke Does the patient have a stroke diagnosis?: No VTE Prior VTE?: No VTE Risk Level:: Medical - moderate - high VTE Device Contraindication: Treatment Not Indicated VTE Drug Contraindication: N/A - Med Ordered
[2023-02-27 09:38] LABS: Vancomycin Random 8.2 mcg/mL (15-20)
--- NOTE | 2023-02-27 10:41 | HO.PM.IMPN ---
Subjective Subjective Date of Service: 02/27/23 Interval History: feeling well no fever had angioplasty [?] at [facility] a few months ago Review of Systems Review of Systems: Yes all other systems are reviewed and are negative Physical Exam Vital Signs: Vital Signs: Last Vital Signs Temp 98 F 02/27/23 06:56 Pulse 85 02/27/23 06:56 Resp 16 02/27/23 06:56 BP 152/70 H 02/27/23 06:56 Pulse Ox 97 02/27/23 06:56 O2 Del Method Room Air 02/27/23 06:56 BMI result Body Mass Index 20.4 Gen: in no acute distress HEENT: sclera anicteric, moist mucus membranes Neck: supple Lungs: clear to auscultation bilaterally Heart: regular rate and rhythm, no murmurs Abd: soft, non-tender, non-distended Ext: no edema Skin: warm/well-perfused, L heel ulcer Neuro: alert and oriented x3, no focal findings Psych: appropriate affect Objective Data Active Medications Acetaminophen (Acetaminophen 325 Mg Tablet) 650 mg PO Q6H PRN PRN Reason: Pain, Mild (Pain Scale 1-3) Last Admin: 02/23/23 02:55 Dose: 650 mg Documented By: RYANNE Amlodipine Besylate (Amlodipine Besylate 10 Mg Tablet) 10 mg PO DAILY [facility]; Protocol Last Admin: 02/27/23 07:20 Dose: 10 mg Documented By: SHANTAL Aspirin (Aspirin 81 Mg Tab.Chew) 81 mg PO DAILY [facility] Last Admin: 02/27/23 07:19 Dose: 81 mg Documented By: SHANTAL Dextrose (Dextrose 50 % 25 Gm/50 Ml Syringe) 25 gm IVPUSH Q15M PRN; Protocol PRN Reason: per Hypoglycemia Standing Ord. Docusate Sodium (Docusate Sodium 100 Mg Capsule) 100 mg PO DAILY PRN PRN Reason: Constipation Enoxaparin Sodium (Enoxaparin Sodium 40 Mg/0.4 Ml Syringe) 40 mg SUBCUT Q24H [facility] Last Admin: 02/26/23 12:24 Dose: 40 mg Documented By: SHANTAL Glucose (Glucose Gel 15 Gm Gel..Gram.) 15 gm PO Q15M PRN; Protocol PRN Reason: per Hypoglycemia Standing Ord. Daptomycin 500 mg/ Sodium (Chloride) 60 mls @ 120 mls/hr IV Q24H [facility] Last Infusion: 02/26/23 17:26 Dose: 0 mls/hr Documented By: SHANTAL Insulin Human Lispro (Insulin Lispro 100 Unit/Ml 3 Ml Vial) 0 unit SUBCUT QIDACHS [facility]; Protocol Last Admin: 02/27/23 07:21 Dose: 6 unit Documented By: SHANTAL Levofloxacin (Levofloxacin 750 Mg Tablet) 750 mg PO Q24H [facility] Lisinopril (Lisinopril 40 Mg Tablet) 40 mg PO DAILY [facility]; Protocol Last Admin: 02/27/23 07:20 Dose: 40 mg Documented By: SHANTAL Ondansetron HCl (Ondansetron Hcl 4 Mg/2 Ml Vial) 4 mg IVPUSH Q8H PRN PRN Reason: Nausea and Vomiting Pharmacy Consult (Consult Rx Perform Med Rec) 1 each MISCELLANE ONCE PRN PRN Reason: Consult order Sodium Chloride (0.9 % Sodium Chloride Flush 3 Ml Syringe) 3 ml IVFLUSH QSHIFT [facility] Last Admin: 02/27/23 07:21 Dose: 3 ml Documented By: SHANTAL Sodium Chloride (0.9 % Sodium Chloride Flush 10 Ml Syringe) 5 ml IVFLUSH TID [facility] Last Admin: 02/27/23 07:21 Dose: 5 ml Documented By: SHANTAL Tamsulosin HCl (Tamsulosin Hcl 0.4 Mg Capsule) 0.4 mg PO BEDTIME [facility] Last Admin: 02/26/23 21:10 Dose: 0.4 mg Documented By: ARMIN Tramadol HCl (Tramadol Hcl 50 Mg Tablet) 50 mg PO Q4H PRN PRN Reason: Pain, Moderate(Pain Scale 4-6) Last Admin: 02/27/23 02:57 Dose: 50 mg Documented By: SAMANTHA Vitamin D (Cholecalciferol (Vitamin D3) 25 Mcg Tablet) 125 mcg PO DAILY [facility] Last Admin: 02/27/23 07:20 Dose: 125 mcg Documented By: SHANTAL Labs 02/27/23 05:27 02/27/23 05:27 Labs: Laboratory Results - last 24 hr 02/26/23 02/26/23 02/26/23 12:16 16:18 20:37 MCV MCH MCHC RDW Plt Count MPV Absolute Nucleated RBC Nucleated RBC % (auto) ESR Anion Gap Estim Creat Clear Calc Estimated GFR POC Glucose 296 H 205 H 176 H Random Glucose Calcium Total Creatine Kinase C-Reactive Protein Random Vancomycin 02/27/23 02/27/23 02/27/23 05:27 05:27 05:27 MCV 91.6 MCH 30.7 MCHC 33.5 RDW 12.2 Plt Count 407 H MPV 9.2 L Absolute Nucleated RBC 0.000 Nucleated RBC % (auto) 0.0 ESR 103 H Anion Gap 11 L Estim Creat Clear Calc 65.6 Estimated GFR > 60 POC Glucose Random Glucose 204 H Calcium 9.7 Total Creatine Kinase 48 C-Reactive Protein 3.82 H Random Vancomycin 02/27/23 02/27/23 06:56 08:45 MCV MCH MCHC RDW Plt Count MPV Absolute Nucleated RBC Nucleated RBC % (auto) ESR Anion Gap Estim Creat Clear Calc Estimated GFR POC Glucose 203 H Random Glucose Calcium Total Creatine Kinase C-Reactive Protein Random Vancomycin 8.2 L Assessment and Plan (1) Cellulitis: Status: Acute (2) Diabetic foot ulcer: Status: Acute (3) Diabetes type 2, controlled: Status: Acute (4) Hypertension: Status: Acute Plan d#6 82yo M with DM2, HTN, HLD, peripheral neuropathy [facility] for nonhealing L heel wound concerning for underlying osteomyelitis # DM osteomyelitis - got 5d of vanc + pip/mandeep, switched to dapto + levofloxacin 02/26/23, end date 04/05/23 - wound culture growing Pseudomonas aeruginosa [FQ sensitive] + MRSA - PICC placed 02/26/23 - per Ortho consult no need for drainage of peritendinous abscess at [facility] # PAD - request [facility] records and consult Vascular Surgery # DM2, A1c 7.7 - lexx-dose lispro # HTN - continue amlodipine + lisinopril # VTE ppx: LMWH # dispo: anticipate home with VNA In my clinical judgment, the patient requires continued inpatient hospitalization for the following reasons: IV ABX, vascular consultation Time Spent With Patient Time: Total time managing care of this patient today _45___ minutes. Quality Stroke Does the patient have a stroke diagnosis?: No VTE Prior VTE?: No VTE Risk Level:: Medical - moderate - high VTE Device Contraindication: Treatment Not Indicated VTE Drug Contraindication: N/A - Med Ordered
[2023-02-27 11:05] LABS: Glucose, Whole Blood 274 mg/dL (60-115)
--- NOTE | 2023-02-27 11:15 | MHC.CLN ---
F/U DIET=DIABETIC 2000 KCALS. TAKES ENSURE MAX PROTEIN AT HOME TO INCREASE PROTEIN INTAKE. ENSURE MAX BID PROVIDES ADDITIONAL 300 KCALS, 60 G PROTEIN. HAS NON HEALING DIABETIC ULCER TO LEFT ANKLE. INTAKE USUALLY 100%. FOLLOW FOR INTAKE AND SKIN INTEGRITY.
[2023-02-27] MEDS: Enoxaparin Sodium 40 MG/0.4 ML SYRINGE SUBCUT (11:22)
--- NOTE | 2023-02-27 12:26 | P.CONGS_ITS ---
History of Present Illness Consult details Consult date: 02/27/23 Reason for consult: wound care Narrative: Very pleasant 82-year-old diabetic gentleman who has been under the care of the [facility] presents for nonhealing left ankle ulcer. It has been pers istent since October. He has undergone endovascular intervention at [facility]. He has been followed by our [facility] who became concerned about its overall status and has been admitted since Saturday. Has been receiving IV antibiotic therapy and reports that it is doing much better. Review of Systems Review of Systems: Yes all other systems are reviewed and are negative Constitutional: Constitutional: Reports no additional constitutional c omplaints ENT: Reports Normal hearing present Cardiovascular: Cardiovascular: Denies chest pain, Denies chest pain at rest, Denies chest pain with activity and Denies pedal edema Respiratory: Respiratory: Denies cough Gastrointestinal: Gastrointestinal: Denies abdominal pain Musculoskeletal: Musculoskeletal: Denies abnormal gait, Denies muscle cramps a nd Denies radiating pain into limb Integumentary/Breasts: Skin/Breast: Denies skin ulcer and Denies wounds Neurologic: Reports Normal hearing present and Denies abnormal gait Psychiatric: Psychiatric: Reports no additional psychiatric complaints PMFSH Past Medical History Medical History Diabetes Family History Family history: reviewed and not pertinent Social History Social History Household Members: Spouse Housing: House Alcohol intake: never Patient Tobacco Use Status: Never used Tobacco service: No Meds Allergies Allergy/AdvReac Type Severity Reaction Status Date / Time codeine AdvReac Dizziness Verified 02/22/23 09:16 Active Medications: Current Medications Acetaminophen (Acetaminophen 325 Mg Tablet) 650 mg PO Q6H PRN PRN Reason: Pain, Mild (Pain Scale 1-3) Last Admin: 02/23/23 02:55 Dose: 650 mg Amlodipine Besylate (Amlodipine Besylate 10 Mg Tablet) 10 mg PO DAILY [facility]; Protocol Last Admin: 02/27/23 07:20 Dose: 10 mg Aspirin (Aspirin 81 Mg Tab.Chew) 81 mg PO DAILY [facility] Last Admin: 02/27/23 07:19 Dose: 81 mg Dextrose (Dextrose 50 % 25 Gm/50 Ml Syringe) 25 gm IVPUSH Q15M PRN; Protocol PRN Reason: per Hypoglycemia Standing Ord. Docusate Sodium (Docusate Sodium 100 Mg Capsule) 100 mg PO DAILY PRN PRN Reason: Constipation Enoxaparin Sodium (Enoxaparin Sodium 40 Mg/0.4 Ml Syringe) 40 mg SUBCUT Q24H [facility] Last Admin: 02/27/23 11:22 Dose: 40 mg Glucose (Glucose Gel 15 Gm Gel..Gram.) 15 gm PO Q15M PRN; Protocol PRN Reason: per Hypoglycemia Standing Ord. Daptomycin 500 mg/ Sodium (Chloride) 60 mls @ 120 mls/hr IV Q24H [facility] Last Infusion: 02/26/23 17:26 Dose: Infused Insulin Human Lispro (Insulin Lispro 100 Unit/Ml 3 Ml Vial) 0 unit SUBCUT QIDACHS [facility]; Protocol Last Admin: 02/27/23 11:22 Dose: 8 unit Levofloxacin (Levofloxacin 750 Mg Tablet) 750 mg PO Q24H [facility] Lisinopril (Lisinopril 40 Mg Tablet) 40 mg PO DAILY [facility]; Protocol Last Admin: 02/27/23 07:20 Dose: 40 mg Ondansetron HCl (Ondansetron Hcl 4 Mg/2 Ml Vial) 4 mg IVPUSH Q8H PRN PRN Reason: Nausea and Vomiting Pharmacy Consult (Consult Rx Perform Med Rec) 1 each MISCELLANE ONCE PRN PRN Reason: Consult order Sodium Chloride (0.9 % Sodium Chloride Flush 3 Ml Syringe) 3 ml IVFLUSH QSHIFT [facility] Last Admin: 02/27/23 07:21 Dose: 3 ml Sodium Chloride (0.9 % Sodium Chloride Flush 10 Ml Syringe) 5 ml IVFLUSH TID [facility] Last Admin: 02/27/23 07:21 Dose: 5 ml Tamsulosin HCl (Tamsulosin Hcl 0.4 Mg Capsule) 0.4 mg PO BEDTIME [facility] Last Admin: 02/26/23 21:10 Dose: 0.4 mg Tramadol HCl (Tramadol Hcl 50 Mg Tablet) 50 mg PO Q4H PRN PRN Reason: Pain, Moderate(Pain Scale 4-6) Last Admin: 02/27/23 02:57 Dose: 50 mg Vitamin D (Cholecalciferol (Vitamin D3) 25 Mcg Tablet) 125 mcg PO DAILY [facility] Last Admin: 02/27/23 07:20 Dose: 125 mcg Home Medications Medication Instructions Recorded Confirmed Last Taken Type amlodipine 10 mg tablet 10 mg PO DAILY 02/22/23 02/22/23 02/22/23 History aspirin 81 mg chewable tablet 81 mg PO DAILY 02/22/23 02/22/23 02/22/23 History cefuroxime axetil 250 mg tablet 250 mg PO BID 02/22/23 02/22/23 02/22/23 History cholecalciferol (vitamin D3) 125 125 mcg PO DAILY 02/22/23 02/22/23 02/22/23 History mcg (5,000 unit) tablet lisinopril 40 mg tablet 40 mg PO DAILY 02/22/23 02/22/23 02/22/23 History metformin 1,000 mg tablet 1,000 mg PO BID 02/22/23 02/22/23 02/22/23 History pravastatin 40 mg tablet 40 mg PO DAILY 02/22/23 02/22/23 02/22/23 History tamsulosin 0.4 mg capsule 0.4 mg PO BEDTIME 02/22/23 02/22/23 02/21/23 History Physical Exam Vital Signs: Vital Signs: Last Vital Signs Temp 98 F 02/27/23 06:56 Pulse 85 02/27/23 06:56 Resp 16 02/27/23 06:56 BP 152/70 H 02/27/23 06:56 Pulse Ox 97 02/27/23 06:56 O2 Del Method Room Air 02/27/23 06:56 BMI result Body Mass Index 20.4 Const: General: cooperative, healthy appearing and comfortable Orientation/consciousness: oriented to person, oriented to place and oriented to time HEENT: Head: Yes normal to inspection Neck: Neck: Yes normal visual inspection Carotids: no bruits Chest: Chest palpation & inspection: normal inspection of the chest Resp: Effort & Inspection: normal respiratory effort and able to speak in complete sentences Auscultation: clear to auscultation bilaterally, no crackles, no rales, no rhonchi and no wheezes Cardio: Other: Bilateral DP signals Rate: regular rate Rhythm: regular rhythm Heart sounds: S1 normal heart sound present and S2 normal heart sound present Bruits: no carotid bruits Peripheral pulses: Peripheral pulses 2+ throughout GI: Inspection: Yes normal to inspection Skin: Other: Left ankle ulcer over tendon approximately 3 cm with fibrin is material overlying, cellulitis appears to be improved Wounds: no wounds Hair: normal Neuro: General: oriented to person, oriented to place and oriented to time Cranial nerves: Yes CN's II-XII intact bilaterally and Yes Normal hearing present Cognition (Neuro): normal cognition Motor exam (neuro): 5/5 motor strength present throughout Extrem: Other: venous exam: No significant superficial varicosities or spider telangiectasias, minimal edema General: No clubbing, No cyanosis and No edema Psych: Appearance: grossly normal Mental Status: mental status grossly normal Speech and movement: Normal speech and movement present Results Labs 02/27/23 05:27 02/27/23 05:27 Labs: Abnormal lab results 02/26/23 02/26/23 02/27/23 Range/Units 16:18 20:37 05:27 RBC (4.60-5.80) X10*6/uL Hgb (14.0-18.0) g/dl Hct (42.0-52.0) % Plt Count (160-400) X10*3/uL MPV (9.4-12.4) fL ESR (0-15) MM/HR Anion Gap 11 L (12-20) POC Glucose 205 H 176 H (60-115) mg/dL Random Glucose 204 H (60-115) mg/dL C-Reactive Protein 3.82 H (< or = 0.50) mg/dL Random Vancomycin (15-20) mcg/mL 02/27/23 02/27/23 02/27/23 Range/Units 05:27 05:27 06:56 RBC 3.58 L (4.60-5.80) X10*6/uL Hgb 11.0 L (14.0-18.0) g/dl Hct 32.8 L (42.0-52.0) % Plt Count 407 H (160-400) X10*3/uL MPV 9.2 L (9.4-12.4) fL ESR 103 H (0-15) MM/HR Anion Gap (12-20) POC Glucose 203 H (60-115) mg/dL Random Glucose (60-115) mg/dL C-Reactive Protein (< or = 0.50) mg/dL Random Vancomycin (15-20) mcg/mL 02/27/23 02/27/23 Range/Units 08:45 10:59 RBC (4.60-5.80) X10*6/uL Hgb (14.0-18.0) g/dl Hct (42.0-52.0) % Plt Count (160-400) X10*3/uL MPV (9.4-12.4) fL ESR (0-15) MM/HR Anion Gap (12-20) POC Glucose 274 H (60-115) mg/dL Random Glucose (60-115) mg/dL C-Reactive Protein (< or = 0.50) mg/dL Random Vancomycin 8.2 L (15-20) mcg/mL Short CBC 02/27/23 Range/Units 05:27 WBC 9.2 (4.8-10.8) X10*3/uL Hgb 11.0 L (14.0-18.0) g/dl Hct 32.8 L (42.0-52.0) % Plt Count 407 H (160-400) X10*3/uL BMP 02/27/23 05:27 Sodium 137 Potassium 3.6 Chloride 104 Carbon Dioxide 26 BUN 15 Creatinine 0.79 Calcium 9.7 Cardiac Enzymes 02/27/23 Range/Units 05:27 Total Creatine Kinase 48 (38-174) U/L All other labs normal. Imaging Additional studies: Arterial ultrasound demonstrates below-knee vasculature with disease questionable posterior tibial occlusion. Assessment and Plan (1) PAD (peripheral artery disease): Status: Acute Plan In short patient has a nonhealing ulcer. He has had a prior endovascular intervention. Would like to repeat this study as he does have significant be low-knee disease. Would like to optimize him in order to heal this. At the current time he is doing well on IV antibiotic therapy. We can schedule him as an outpatient for angiogram. Thank you for allowing us to assist in his care. If there are any questions or concerns please do not hesitate to contact us. This was all discussed with patient patient's who was at bedside and hospitalist team. Time Spent With Patient Time: Total time managing care of this patient today ____ minutes. Procedures Date of Service Date of Service: 02/27/23
--- NOTE | 2023-02-27 12:34 | MHC.CM.PN ---
Addendum entered by Tonya Hale RN 02/27/23 15:47: IMM 02/27 IN CHART Original Note: PATIENT AND SPOUSE HAVE BEEN TAUGHT ABX ADMINISTRATION. PLAN IS DOSE TONIGHT DAPTO TO BE DELIVERED TO HOME LATER TODAY DC HOME IN MORNING AND RESUME ABX SCHEDULE [facility] AND [facility] AWARE OF PLAN
[2023-02-27 16:00] VITALS: BP 137/68; PULSE 76; RESP 20; TEMP 36.6; O2SAT 94
[2023-02-27] MEDS: levoFLOXacin 750 MG TABLET PO (16:14)
[2023-02-27] MEDS: DAPTOmycin 500 MG in 0.9 % Sodium Chloride 50 ML 120 MG IV (16:14)
[2023-02-27 16:35] LABS: Glucose, Whole Blood 233 mg/dL (60-115)
--- NOTE | 2023-02-27 17:30 | HO.WOUNDCONS ---
History of Present Illness Data of Consult Service Date: 02/27/23 Requesting physician: Chelle Kaplan Primary Care Provider: Zackary Thao MD [facility] Reason for consult: Left heel wound The patient is 82-year-old male known to us in the [facility] Care [facility] with the left heel wound. It got worse and on examination last week he was sent from Wound Care to the emergency room where he was admitted and started on IV antibiotics. Treatment included imaging which shows osteomyelitis and other breakdown of the structure of the heel. Patient was getting treatment with debridement and dressings before in wound care center. In the hospital 0 form and gauze dressings were being used. A vascular consult was carried out by Dr. Laura who suggesting the patient undergoes angiogram to determine his vascular status. [facility] Medical History Diabetes Social History Household Members: Spouse Housing: House Alcohol intake: never Patient Tobacco Use Status: Never used Tobacco service: No Meds Allergies Allergy/AdvReac Type Severity Reaction Status Date / Time codeine AdvReac Dizziness Verified 02/22/23 09:16 Active Medications: Current Medications Acetaminophen (Acetaminophen 325 Mg Tablet) 650 mg PO Q6H PRN PRN Reason: Pain, Mild (Pain Scale 1-3) Last Admin: 02/23/23 02:55 Dose: 650 mg Amlodipine Besylate (Amlodipine Besylate 10 Mg Tablet) 10 mg PO DAILY MORGAN; Protocol Last Admin: 02/27/23 07:20 Dose: 10 mg Aspirin (Aspirin 81 Mg Tab.Chew) 81 mg PO DAILY MORGAN Last Admin: 02/27/23 07:19 Dose: 81 mg Collagenase (Collagenase Clostridium Hist. 30 Gm Tube) 1 appl TOPICAL DAILY MORGAN; Protocol Dextrose (Dextrose 50 % 25 Gm/50 Ml Syringe) 25 gm IVPUSH Q15M PRN; Protocol PRN Reason: per Hypoglycemia Standing Ord. Docusate Sodium (Docusate Sodium 100 Mg Capsule) 100 mg PO DAILY PRN PRN Reason: Constipation Enoxaparin Sodium (Enoxaparin Sodium 40 Mg/0.4 Ml Syringe) 40 mg SUBCUT Q24H [facility]GAN Last Admin: 02/27/23 11:22 Dose: 40 mg Glucose (Glucose Gel 15 Gm Gel..Gram.) 15 gm PO Q15M PRN; Protocol PRN Reason: per Hypoglycemia Standing Ord. Daptomycin 500 mg/ Sodium (Chloride) 60 mls @ 120 mls/hr IV Q24H [facility] Last Admin: 02/27/23 16:14 Dose: 120 mls/hr Insulin Human Lispro (Insulin Lispro 100 Unit/Ml 3 Ml Vial) 0 unit SUBCUT QIDACHS [facility]; Protocol Last Admin: 02/27/23 16:45 Dose: 6 unit Levofloxacin (Levofloxacin 750 Mg Tablet) 750 mg PO Q24H [facility] Last Admin: 02/27/23 16:14 Dose: 750 mg Lisinopril (Lisinopril 40 Mg Tablet) 40 mg PO DAILY [facility]; Protocol Last Admin: 02/27/23 07:20 Dose: 40 mg Ondansetron HCl (Ondansetron Hcl 4 Mg/2 Ml Vial) 4 mg IVPUSH Q8H PRN PRN Reason: Nausea and Vomiting Pharmacy Consult (Consult Rx Perform Med Rec) 1 each MISCELLANE ONCE PRN PRN Reason: Consult order Sodium Chloride (0.9 % Sodium Chloride Flush 3 Ml Syringe) 3 ml IVFLUSH QSHIFT [facility] Last Admin: 02/27/23 16:15 Dose: 3 ml Sodium Chloride (0.9 % Sodium Chloride Flush 10 Ml Syringe) 5 ml IVFLUSH TID [facility] Last Admin: 02/27/23 16:15 Dose: 5 ml Tamsulosin HCl (Tamsulosin Hcl 0.4 Mg Capsule) 0.4 mg PO BEDTIME [facility] Last Admin: 02/26/23 21:10 Dose: 0.4 mg Tramadol HCl (Tramadol Hcl 50 Mg Tablet) 50 mg PO Q4H PRN PRN Reason: Pain, Moderate(Pain Scale 4-6) Last Admin: 02/27/23 02:57 Dose: 50 mg Vitamin D (Cholecalciferol (Vitamin D3) 25 Mcg Tablet) 125 mcg PO DAILY [facility] Last Admin: 02/27/23 07:20 Dose: 125 mcg Home Medications Medication Instructions Recorded Confirmed Last Taken Type amlodipine 10 mg tablet 10 mg PO DAILY 02/22/23 02/22/23 02/22/23 History aspirin 81 mg chewable tablet 81 mg PO DAILY 02/22/23 02/22/23 02/22/23 History cholecalciferol (vitamin D3) 125 125 mcg PO DAILY 02/22/23 02/22/23 02/22/23 History mcg (5,000 unit) tablet lisinopril 40 mg tablet 40 mg PO DAILY 02/22/23 02/22/23 02/22/23 History metformin 1,000 mg tablet 1,000 mg PO BID 02/22/23 02/22/23 02/22/23 History pravastatin 40 mg tablet 40 mg PO DAILY 02/22/23 02/22/23 02/22/23 History tamsulosin 0.4 mg capsule 0.4 mg PO BEDTIME 02/22/23 02/22/23 02/21/23 History Physical Exam Vital Signs and Narrative: Vital Signs: Last Vital Signs Temp 97.9 F 02/27/23 16:00 Pulse 76 02/27/23 16:00 Resp 20 02/27/23 16:00 BP 137/68 02/27/23 16:00 Pulse Ox 94 02/27/23 16:00 O2 Del Method Room Air 02/27/23 16:00 BMI result Body Mass Index 20.4 Skin: Other: Left heel wound open with tendon visible deep some fatty tissue present but a lot of slough. Results Labs 02/27/23 05:27 02/27/23 05:27 Labs: Laboratory Results - last 24 hr 02/26/23 02/27/23 02/27/23 20:37 05:27 05:27 MCV 91.6 MCH 30.7 MCHC 33.5 RDW 12.2 Plt Count 407 H MPV 9.2 L Absolute Nucleated RBC 0.000 Nucleated RBC % (auto) 0.0 ESR Anion Gap 11 L Estim Creat Clear Calc 65.6 Estimated GFR > 60 POC Glucose 176 H Random Glucose 204 H Calcium 9.7 Total Creatine Kinase 48 C-Reactive Protein 3.82 H Random Vancomycin 02/27/23 02/27/23 02/27/23 05:27 06:56 08:45 MCV MCH MCHC RDW Plt Count MPV Absolute Nucleated RBC Nucleated RBC % (auto) ESR 103 H Anion Gap Estim Creat Clear Calc Estimated GFR POC Glucose 203 H Random Glucose Calcium Total Creatine Kinase C-Reactive Protein Random Vancomycin 8.2 L 02/27/23 02/27/23 10:59 16:21 MCV MCH MCHC RDW Plt Count MPV Absolute Nucleated RBC Nucleated RBC % (auto) ESR Anion Gap Estim Creat Clear Calc Estimated GFR POC Glucose 274 H 233 H Random Glucose Calcium Total Creatine Kinase C-Reactive Protein Random Vancomycin Imaging Comment: [address] [address] Magnetic Resonance Report Signed Patient: Lee Perez MR#: [id number] : 1940 Acct:[id number] Age/Sex: 82 / M ADM Date: 02/22/23 Loc: [facility] 380-[address]: Chelle Kaplan MD Ordering Physician: Kamari Hopkins DO Date of Service: 02/25/23 Procedure(s): MR ankle LT wo/w con Accession Number(s): [id number] cc: Kamari Hopkins DO~ EXAMINATION: MR ANKLE WITHOUT AND WITH CONTRAST, LEFT CLINICAL INFORMATION: Elevated CRP/ESR in backdrop chronic cellulitis.? COMPARISON: Radiograph dated 02/22/2023.? ? TECHNIQUE: MRI of the ankle was performed before and after the intravenous administration of 6.5 mL gadolinium on a high-field scanner. FINDINGS: ACHILLES TENDON: The Achilles tendon is thickened at its mid substance and distal extent, measuring up to 1.3 cm AP, consistent with tendinosis. There is a superficial partial tear of the lateral margin of the tendon involving approximately 20 percent of the tendon cross-section, occurring at the deep margin of the soft tissue wound. Enthesopathic spurring is present at the Achilles tendon insertion on the calcaneus. The soft tissues surrounding the Achilles are swollen and edematous, consistent with cellulitis and deep infection related to the adjacent wound. There is a complex peripherally enhancing fluid collection surrounding the Achilles tendon over a region measuring 6 cm in length and 3 x 1.5 cm in cross-section, inclusive of the Achilles tendon, consistent with an abscess. OTHER TENDONS: There is fatty replacement of the imaged portion of the distal ankle musculature including the flexor hallucis longus muscle. A chronic high-grade tear of the posterior tibial tendon is evident at the level of the distal femoral metaphysis, involving at least three quarters of the tendon thickness with marked attenuation of the tendon over a 5 cm segment centered at the level of the medial malleolus. The other medial flexor tendons are intact. Intact peroneal and extensor tendons. LIGAMENTS: Anterior talofibular ligament is diminutive, most consistent with chronic changes of prior partial tear. Calcaneofibular and posterior talofibular ligaments are intact. Distal tibiofibular ligaments are normal. The deltoid ligament is scarred with small chronic osseous fragments, consistent with a chronic partial tear. The spring ligament is markedly thinned and irregular, likely partially torn near the navicular insertion. BONE AND ARTICULAR CARTILAGE: Intense marrow edema signal is evident at the posterior/lateral margin of the calcaneal tuberosity deep to the skin wound with areas of diminished T1 signal, and consistent with osteomyelitis. Enthesopathic spurring is present at the Achilles tendon insertion in this region. There is mild talocrural osteoarthritis with cartilage loss and subcortical cystic change at the lateral aspect of the joint. Mild osteoarthritis is also present in the posterior facet of the subtalar joint. Moderate to severe osteoarthritis is present at the articulation between the lateral cuneiform and cuboid and the navicular and cuboid. Chronic changes of a fibrous coalition in this region is possible. Osseous fragmentation is evident at the sinus tarsi and is chronic in nature. Plantar valgus angulation is evident in the foot. [id number] osteoarthritis is noted in the naviculocuneiform and tarsometatarsal joints with prominent dorsal osteophytes. JOINT FLUID AND SOFT TISSUES: Synovial inflammation is evident at the posterior recess of the subtalar joint, likely reactive to the adjacent infection. No significant effusion. Diffuse edema signal is evident in the soft tissues at the ankle. As noted above, there is a skin wound at the posterolateral aspect of the ankle and hindfoot. This measures 0.5 x 4 cm in area with a depth of up to 8 mm, extending to the level of the underlying bone and Achilles tendon, associated with the aforementioned abscess and osteomyelitis. Intrinsic foot musculature is atrophic with fatty replacement and increased T2 signal. PLANTAR FASCIA: Thickened with intermediate signal intensity at the plantar fascial origin, consistent with acute on chronic fasciitis. 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 Tarsal tunnel is unremarkable. MR/MR ankle LT wo/w con IMPRESSION: 1.? Soft tissue wound at the posterolateral aspect of the ankle and hindfoot with underlying osteomyelitis at the calcaneal tuberosity, partial tear of the Achilles, and a peritendinous abscess at the Achilles tendon. ? 2.? 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 ? 3.? Chronic partial tears of the deltoid and spring ligaments. ? 4.? 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 Ordering Physician: Chelle Kaplan MD Date of Service: 02/26/23 Procedure(s): US arterial duplex LE LT Accession Number(s): [id number] cc: Chelle Kaplan MD~ EXAMINATION: Noninvasive assessment of the left lower extremities with ARTERIAL DUPLEX. CLINICAL INFORMATION: Nonhealing ulceration of the left foot TECHNIQUE: Duplex Doppler techniques with waveform analysis and measurement of velocities in the left common femoral, profunda femoris, superficial femoral, popliteal and tibial arteries were performed.? COMPARISON: None FINDINGS: DIRECT DUPLEX DOPPLER FINDINGS: LEFT LEG: Common femoral artery: 103 cm/s, phasicity: Triphasic, mild calcified plaque Profunda femoris artery: 84 cm/s, phasicity: Biphasic Superficial femoral artery (proximal): 123 cm/s, phasicity: Triphasic Superficial femoral artery (mid): 73 cm/s, phasicity: Triphasic Superficial femoral artery (distal): 105 cm/s, phasicity: Triphasic, mild noncalcified plaque Popliteal artery: 110 cm/s, phasicity: Triphasic, diffuse calcified plaque Posterior tibial artery: 203 cm/s, phasicity: Triphasic. Distal segment is occluded Peroneal artery: 279 cm/s, phasicity: Monophasic US/US arterial duplex LE LT IMPRESSION: Scattered atherosclerotic plaque with patent arterial flow in the femoral and popliteal arteries. Elevated velocities with atherosclerotic plaque in the posterior tibial and peroneal arteries. The distal posterior tibial artery is occluded Dictated By: Myron He MD Signed By: <Electronically signed by Myron He MD in OV> 02/26/23 1656 DD/ 1557 TD/TT:? Manager Provider Relations: Assessment and Plan (1) Diabetic foot ulcer: Status: Acute Plan 82-year-old male with peripheral vascular disease and left heel wound diabetic treated with IV antibiotics for cellulitis and now os well as osteomyelitis. He just got a PICC line and will receive 6 weeks of IV antibiotics as per Infectious Diseases. Plan to do Santyl for cleaning the wound area as there is not a lot of good tissue here and would prefer to just get rid of the slough. Improve nutrition tight diabetic control. Plan to re-evaluate in the [facility] Care [facility] once gets discharged. Patient and his understand and agree with the above plan and here it he has an appointment for next Saturday. Please continue Santyl dressing daily on discharge. Consider nutrition consult increased protein in his diet Time Spent With Patient Time: Total time managing care of this patient today ____ minutes.
[2023-02-27 20:00] VITALS: BP 161/69; PULSE 84; RESP 18; TEMP 36.6; O2SAT 97
[2023-02-27 20:27] LABS: Glucose, Whole Blood 324 mg/dL (60-115)
[2023-02-27] MEDS: Tamsulosin HCL 0.4 MG CAPSULE PO (21:19)
[2023-02-28 04:00] VITALS: BP 148/72; PULSE 89; RESP 16; TEMP 36.1; O2SAT 96
[2023-02-28 06:32] LABS: Creatinine Clr Calc Pharmacy 64.8; Estimated Glomerular Filt Rate > 60
[2023-02-28 07:34] LABS: Glucose, Whole Blood 212 mg/dL (60-115)
[2023-02-28 08:00] VITALS: BP 153/79; PULSE 79; RESP 16; TEMP 36.6; O2SAT 97
[2023-02-28] MEDS: amLODIPine Besylate 10 MG TABLET PO (08:34)
[2023-02-28] MEDS: Cholecalciferol (Vitamin D3) 25 MCG TABLET 125 MCG PO (08:34)
[2023-02-28] MEDS: Insulin Lispro 100 UNIT/ML 3 ML VIAL SUBCUT ×2 (08:34→11:49)
[2023-02-28] MEDS: lisinopriL 40 MG TABLET PO (08:35)
[2023-02-28] MEDS: Aspirin 81 MG TAB.CHEW PO (08:35)
[2023-02-28] MEDS: 0.9 % Sodium Chloride Flush 3 ML SYRINGE IVFLUSH (08:35)
[2023-02-28] MEDS: 0.9 % Sodium Chloride Flush 10 ML SYRINGE 5 ML IVFLUSH (08:35)
[2023-02-28] MEDS: Collagenase Clostridium Hist. 30 GM TUBE 1 APPL TOPICAL (08:36)
[2023-02-28 11:28] LABS: Glucose, Whole Blood 356 mg/dL (60-115)
--- NOTE | 2023-02-28 11:44 | W.MHC.F2F ---
Service Date Service Date: 02/28/23 Encounter Date of encounter: 02/28/23 Reasons for Services Signs and symptoms assessed: wound care PICC line Reason for care home: wound care, administration of IV, SQ, or IM injection, central line care and medication treatment Reason for physical therapy: home safety and mobility, therapeutic exercises, gait/transfer training, assess need for DME, ADL training and energy conservation MD Overseeing Care: Zackary Thao Homebound: Leaving the home is medically contraindicated at this time without the asist of a device and/or another person due th the listed conditions above and below. Reason homebound: unsteady gait / fall risk, immunosuppression / infection risk and weakness related to hospital stay Homebound supporting statement: daptomycin 500 mg IV daily via PICC, end date 04/05/23 wound care: santyl thick layer to left heel wound and cover with gauze and change daily Certification: Based on the above findings, I certify that this patient is confined to the home and needs intermittent care home care, physical therapy and/or speech therapy, or continues to need occupational therapy. The patient is under my care, and I have initiated the establishment of the plan of care. The patient will be followed by a physician who will periodically review the plan of care. Time Spent With Patient Time: Total time managing care of this patient today ____ minutes.
[2023-02-28] MEDS: Enoxaparin Sodium 40 MG/0.4 ML SYRINGE SUBCUT (11:49)
--- NOTE | 2023-02-28 11:49 | PM.DS ---
DS: Providers Provider Date of Service: 02/28/23 Date of admission: 02/22/23 11:49 Date of discharge: 02/28/23 Primary care physician: Zackary Thao MD Consults: 02/22/23 11:17 Consult to Infectious Diseases Routine Consulting Provider: [facility] [place] Infectious Disease Reason for consultation: Diabetic foot wound, ?osteo, ?MRI 02/22/23 13:25 Consult to General Surgery Routine Consulting Provider: [facility] [place] General Surgeons Reason for consultation: Nonhealing diabetic foot ulcer of left heel 02/26/23 12:25 Consult to Orthopedics Routine Consulting Provider: [facility] [place] Orthopedic Surgeons Reason for consultation: peritendinous abscess around the Achilles 02/26/23 14:15 Consult to Wound Care Routine Consulting Provider: [facility] [place] Wound Care Management Reason for consultation: osteomyelitis, heel wound, peritendinous abscess. plan home with [facility] 02/27/23 07:59 Consult to Vascular Surgery Routine Consulting Provider: [facility] [place] Vascular Services Reason for consultation: osteo of heel, PAD s/p balloon at [facility] 02/27/23 11:14 Consult to Infectious Diseases Stat Consulting Provider: [facility] [place] Infectious Disease Reason for consultation: [place] ORDER DS: Diagnosis Discharge Diagnosis (1) Diabetic foot ulcer: Status: Acute (2) Diabetic osteomyelitis: Status: Acute (3) PAD (peripheral artery disease): Status: Acute DS: Summary Hospital Course Hospital Course: from admission H+P by hospitalist BRITTANY Ramírez, 02/22/23: Pt is an 82-year-old male with a PMH significant for?insulin-dependent diabetes type 2, HTN, HLD, and peripheral neuropathy in right leg who [facility] ED [facility] for evaluation of non healing diabetic wound of left heel concerning for osteomyelitis. Patient originally developed wound in October and has been seeing wound care clinic weekly since then. Patient had been on cephalexin and then recently prescribed doxycycline, however patient states that this was never filled by the pharmacy and he has thus not started taking it.? Patient notes redness to the skin around heel and foot and extending up lower leg, new for the past week or so. Lower leg swelling which had been stable since wound.? Patient had one prior wound on the 1st digit of his right foot, secondary to cutting off a callus with a razor blade.? 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 Patient notes that during that time his hospital stay was prolonged due to hypotension.? Patient and not clear if this was due to an adverse reaction to IV antibiotics, but patient does not carry any known allergy to antibiotics. Otherwise patient has not had any other chronic diabetic foot wounds. Patient also had vascular surgery on his left lower leg on December 17 at [facility].? Patient says surgeon was pleased with the amount of vascular flow that was reestablished.? Patient complains of chronic left foot and ankle pain and chronic right leg neuropathy.? Patient also has stable, chronic shortness of breath with exertion.? Patient denies any acute systemic symptoms:? No fever, chills, nausea, vomiting.? No chest pain/pressure, palpitations.? Denies abdominal pain. In the ED patient was afebrile and hemodynamically stable. Labs were significant for H&H of 12.0/35.2, ESR 76, CRP 5.65, lactic acid 2.4, random glucose 262. X-ray of left foot and ankle showed no radiographic evidence of osteomyelitis in the left ankle or foot, which did show soft tissues swollen right ankle and proximal foot. Pt was treated with 2 L normal saline, vanc and Zosyn. Pt will be admitted to the hospital for treatment further evaluation of chronic diabetic foot ulcer concerning for osteomyelitis. 82yo M with DM2, HTN, HLD, peripheral neuropathy, and PAD sent in by [facility] for nonhealing L heel wound concerning for underlying osteomyelitis. 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 He was given 5 days of vancomycin + piperacillin/tazobactam. Wound culture grew quinolone-sensitive Pseudomonas aeruginosa plus MRSA. PICC was placed 02/26/23 and he was switched to IV daptomycin + PO levofloxacin; end date 04/05/23 [total 6 weeks]. Blood cultures negative. Per Ortho consult no need for drainage of peritendinous abscess at Achilles. Wound care instructions per multi site leasing consultant: Santyl thick layer to left heel wound and cover with gauze and change daily. # PAD - History of balloon angiplasty of R peroneal artery 12/13/21 at [facility]. Arterial dopplers showed possible distal posterior tibial artery occlusion. Vascular Surgery was consulted and he will be scheduled for angiogram at [facility] [place] 03/06/23. He was discharged home with [facility] services for IV antibiotic infusion and wound care. Time Spent with Patient Time attestation: Total time managing care of this patient today __40__ minutes. Discharge coordination time: Greater than 30 minutes Quality: Safe Use of Opioids Does Pt have an Active Cancer Diagnosis on the Problem List?: No Quality: Stroke Does the patient have a stroke diagnosis?: No Physical Exam Vital Signs: Vital Signs: Last Vital Signs Temp 97.9 F 02/28/23 08:00 Pulse 79 02/28/23 08:00 Resp 16 02/28/23 08:00 BP 153/79 H 02/28/23 08:00 Pulse Ox 97 02/28/23 08:00 O2 Del Method Room Air 02/28/23 08:00 BMI result Body Mass Index 20.4 Gen: in no acute distress HEENT: sclera anicteric, moist mucus membranes Neck: supple Lungs: clear to auscultation bilaterally Heart: regular rate and rhythm, no murmurs Abd: soft, non-tender, non-distended Ext: no edema Skin: warm/well-perfused, L heel ulcer Neuro: alert and oriented x3, no focal findings Psych: appropriate affect DS: Data Data Completed and Pending Completed studies during hospitalization [Text1]: Laboratory Results WBC 9.2 X10*3/uL (4.8-10.8) 02/27/23 05:27 RBC 3.58 X10*6/uL (4.60-5.80) L 02/27/23 05:27 Hgb 11.0 g/dl (14.0-18.0) L 02/27/23 05:27 Hct 32.8 % (42.0-52.0) L 02/27/23 05:27 MCV 91.6 fL (80.0-98.0) 02/27/23 05:27 MCH 30.7 pg (27.0-33.0) 02/27/23 05:27 MCHC 33.5 g/dl (31.0-36.0) 02/27/23 05:27 RDW 12.2 % (11.0-16.0) 02/27/23 05:27 Plt Count 407 X10*3/uL (160-400) H 02/27/23 05:27 MPV 9.2 fL (9.4-12.4) L 02/27/23 05:27 Immature Gran % (Auto) 2.9 % (0.0-0.4) H 02/22/23 09:53 Neut % (Auto) 78.0 % (45-73) H 02/22/23 09:53 Lymph % (Auto) 11.3 % (20-40) L 02/22/23 09:53 Linn % (Auto) 6.5 % (2-11) 02/22/23 09:53 Eos % (Auto) 0.9 % (0-4) 02/22/23 09:53 Baso % (Auto) 0.4 % (0-2) 02/22/23 09:53 Lymph # (Auto) 1.2 X10*3/uL (1.2-4.9) 02/22/23 09:53 Linn # (Auto) 0.7 X10*3/uL (0.1-1.2) 02/22/23 09:53 Eos # (Auto) 0.1 X10*3/uL (0.0-0.4) 02/22/23 09:53 Baso # (Auto) 0.0 X10*3/uL (0.0-0.2) 02/22/23 09:53 Abs Immat Gran (auto) 0.30 X10*3/uL (0.00-0.03) H 02/22/23 09:53 Absolute Neuts (auto) 8.1 x10*3/uL (2.0-8.3) 02/22/23 09:53 Absolute Nucleated RBC 0.000 X10*3/uL (0.0-0.012) 02/27/23 05:27 Nucleated RBC % (auto) 0.0 /100WBC (0.0-0.2) 02/27/23 05:27 ESR 103 MM/HR (0-15) H 02/27/23 05:27 Sodium 137 mmol/L (135-145) 02/27/23 05:27 Potassium 3.6 mmol/L (3.3-5.1) 02/27/23 05:27 Chloride 104 mmol/L (96-108) 02/27/23 05:27 Carbon Dioxide 26 mmol/L (22-29) 02/27/23 05:27 Anion Gap 11 (12-20) L 02/27/23 05:27 BUN 15 mg/dL (9-16) 02/27/23 05:27 Creatinine 0.80 mg/dL (0.5-1.4) 02/28/23 05:43 Estim Creat Clear Calc 64.8 02/28/23 05:43 Estimated GFR > 60 02/28/23 05:43 POC Glucose 356 mg/dL (60-115) H* 02/28/23 11:24 Random Glucose 204 mg/dL (60-115) H 02/27/23 05:27 Estimat Average Glucose 174 mg/dL 02/25/23 10:16 Hemoglobin A1c % 7.7 % 02/25/23 10:16 Lactic Acid 2.4 mmol/L (0.5-2.0) H* 02/22/23 09:53 Lactic Acid F/U @ 2Hr 1.5 mmol/L (0.5-2.0) 02/22/23 12:22 Calcium 9.7 mg/dL (8.4-10.2) 02/27/23 05:27 Total Bilirubin 0.3 mg/dL (0.0-1.0) 02/22/23 09:53 AST 10 U/L (5-37) 02/22/23 09:53 ALT 7 U/L (0-40) 02/22/23 09:53 Alkaline Phosphatase 68 U/L (39-117) 02/22/23 09:53 Total Creatine Kinase 48 U/L (38-174) 02/27/23 05:27 C-Reactive Protein 3.82 mg/dL (< or = 0.50) H 02/27/23 05:27 Total Protein 7.6 g/dL (6.5-8.0) 02/22/23 09:53 Albumin 3.4 g/dL (3.5-5.0) L 02/22/23 09:53 Vancomycin Trough 6.5 mcg/mL (10.0-20.0) L 02/25/23 10:16 Random Vancomycin 8.2 mcg/mL (15-20) L 02/27/23 08:45 Impressions Ankle X-Ray 02/22/23 10:19 IMPRESSION: * No radiographic evidence of osteomyelitis in the left ankle or foot. * A soft tissue wound projects over region of the bursal projection of the calcaneus (region of the Achilles insertion). * Soft tissues are swollen around the ankle and proximal foot. * There is osteoarthritis of several joints, as noted above. Foot X-Ray 02/22/23 10:19 IMPRESSION: * No radiographic evidence of osteomyelitis in the left ankle or foot. * A soft tissue wound projects over region of the bursal projection of the calcaneus (region of the Achilles insertion). * Soft tissues are swollen around the ankle and proximal foot. * There is osteoarthritis of several joints, as noted above. Ankle MRI 02/25/23 21:07 IMPRESSION: 1. Soft tissue wound at the posterolateral aspect of the ankle and hindfoot with underlying osteomyelitis at the calcaneal tuberosity, partial tear of the Achilles, and a peritendinous abscess at the Achilles tendon. 2. 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 3. Chronic partial tears of the deltoid and spring ligaments. 4. [id number] multifocal osteoarthritis in the hindfoot and midfoot. Duplex Scan Lower Extremity Artery 02/26/23 15:57 IMPRESSION: Scattered atherosclerotic plaque with patent arterial flow in the femoral and popliteal arteries. Elevated velocities with atherosclerotic plaque in the posterior tibial and peroneal arteries. The distal posterior tibial artery is occluded Discharge Plan Discharge Anticipated Discharge Date/Time: 02/28/23 11:00 Patient Disposition: Home Health Service Discharge Diagnosis: diabetic osteomyelitis peripheral arterial disease Referrals: [facility] [Other] - 1 Week (HOME INFUSION SERVICES FOR EDUCATION /SUPPLIES) [facility] [Outside] - 1 Week (HOME SERVICES FOR WOUND CARE/IV EDUCATION AND OVERSIGHT- A NURSE WILL BE IN TO SEE YOU TODAY) Kenyetta Woo MD [Physician] - 1 Week Anup Laura MD [Physician] - 1 Week Olivia Hale MD [Physician] - 1 Week Zackary Thao MD [Primary Care Provider] - 1 Week Discharge Medications: New Santyl 250 unit/gram Ointment 1 appl topical DAILY Qty: 90 0RF Protocol: Apply to: Apply to: ankle wound daily levofloxacin 750 mg Tablet 750 mg PO Q24H Qty: 36 0RF daptomycin 500 mg recon soln 500 mg IV Q24H Qty: 36 0RF Rx Instructions: administer over 30 mins Continued tamsulosin 0.4 mg capsule 0.4 mg PO BEDTIME amlodipine 10 mg tablet 10 mg PO DAILY metformin 1,000 mg tablet 1,000 mg PO BID aspirin 81 mg Tablet,Chewable 81 mg PO DAILY lisinopril 40 mg tablet 40 mg PO DAILY cholecalciferol (vitamin D3) 125 mcg (5,000 unit) Tablet 125 mcg PO DAILY Held pravastatin 40 mg tablet 40 mg PO DAILY Hold Instructions: Resume on 04/06/23. Discontinued cefuroxime axetil 250 mg tablet 250 mg PO BID Discharge Orders: Discharge Order (Routine); Ordered 02/28/23 Ordered By: Chelle Kaplan Diet: Diabetic diet Activity on Discharge: As tolerated Stand Alone Forms: Patient Portal Discharge page Care Plan Goals: cure of infection Health Concerns: diabetic osteomyelitis of calcaneus peripheral arterial disease Plan of Treatment: wound care: santyl thick layer to left heel wound and cover with gauze and change daily Antibiotics until end date of 04/05/23 - daptomycin 500 mg IV daily via PICC [Hold pravastatin while on daptomycin] - levofloxacin 750 mg oral daily Weekly labs while on antibiotics: CBCd, BMP, CPK Follow up with Infectious Disease [Dr Woo] in 1-2 weeks Follow up with [facility] [place] Wound Care in 1 week Follow up with Vascular Surgery [Dr Laura] for planned angiogram 03/06/23 Please follow up with your primary care doctor within 1 week. Return to the hospital if you experience recurrent or worsening symptoms. Assessment: See Discharge Summary.
--- NOTE | 2023-02-28 11:56 | MHC.CM.PN ---
DP: PT HAS BEEN MEDICALLY CLEARED FOR DC HOME WITH NEW [facility] FOR HI NEEDS. RN AWARE. [facility] UPDATED ON DC AND SOC TODAY. WILL TRANSPORT HOME.
--- NOTE | 2023-02-28 13:00 | HO.VASCPN ---
Subjective Subjective Date of Service: 03/01/23 Patient reports: no new complaints and feels better Interval history: Very pleasant 82-year-old gentleman presents for follow-up regarding nonhealing left ankle ulcer. He has been receiving IV antibiotic therapy. He reports in general he appears to be doing significantly better. No other interval issues. Eager to be discharged. Physical Exam Vital Signs: Vital Signs: Last Vital Signs Temp 97.9 F 02/28/23 08:00 Pulse 79 02/28/23 08:00 Resp 16 02/28/23 08:00 BP 153/79 H 02/28/23 08:00 Pulse Ox 97 02/28/23 08:00 O2 Del Method Room Air 02/28/23 08:00 BMI result Body Mass Index 20.4 Const: General: cooperative, healthy appearing and no acute distress Orientation/consciousness: oriented to person, oriented to place and oriented to time HEENT: Head: Yes normal to inspection Neck: Carotids: no bruits Chest: Chest palpation & inspection: normal inspection of the chest Resp: Effort & Inspection: normal respiratory effort and able to speak in complete sentences Auscultation: clear to auscultation bilaterally Cardio: Rate: regular rate Heart sounds: S1 normal heart sound present and S2 normal heart sound present GI: Inspection: Yes normal to inspection Skin: Other: Left ankle ulcer with 3 cm with some fibrinous necrotic material overlying General skin exam: no rashes or lesions noted Wounds: no wounds Neuro: General: oriented to person, oriented to place, oriented to time and CN's II-XI intact bilaterally Extrem: General: Yes normal to inspection, Yes full ROM and Yes no clubbing, cyanosis or edema Psych: Appearance: grossly normal and well kempt Speech and movement: Normal speech and movement present Affect: normal affect Progress Note: A&P Assessment and plan (1) PAD (peripheral artery disease): Status: Acute Assessment and Plan: Patient notes leg pain when walking distances. I have discussed the pathophysiology of peripheral vascular disease with the patient. I have also discussed risk factor modification. I have reviewed the patient's arterial testing which reveals left leg below knee disease. the patient would benefit from a left leg endovascular peripheral angiogram with possible angioplasty, stent, and/or atherectomy. This has been discussed in detail with the patient along with risks, benefits, and complications. This includes but is not limited to bleeding, infection, heart attack, need for emergent surgical repair, limb ischemia, blood vessel damage, bleeding, puncture, kidney injury, bruising, allergic reaction, and skin reaction. The patient demonstrates a clear understanding. We will schedule for the next appropriate time. Thank you for allowing us to assist in this patient's care. Time Spent With Patient Time: Total time managing care of this patient today ____ minutes. Procedures Date of Service Date of Service: 03/01/23 Quality Stroke Does the patient have a stroke diagnosis?: No VTE Prior VTE?: No VTE Risk Level:: Medical - moderate - high VTE Device Contraindication: Treatment Not Indicated VTE Drug Contraindication: N/A - Med Ordered
--- NOTE | 2023-02-28 17:04 | P.CDIM_ITS ---
PROVIDER RESPONSE TEXT: To clarify, the appropriate diagnosis supported by the clinical indicators: Other (explain): Diabetic osteomyelitis QUERY TEXT: PHYSICIAN'S DOCUMENTATION REQUEST Date of Query: 02/26/2023 07:48 AM EDT Patient Name: Lee Perez Admit Date: 02/22/2023 Dear Chelle Kaplan, A review of the medical record indicates additional documentation may be needed. Please review below and update the documentation accordingly. Clinical Indicators: PN: Cellulitis DM foot infection, MRI to assess for osteomyelitis. continue Vanco and pip/mandeep Wound culture growing Pseudomonas aeruginosa + mrsa. Nonhealing ulcer left lower ankle/foot. Please clarify the following regarding the Complications of Diabetes Mellitus (DM): Cellulitis due to/associated with Diabetes mellitus Type 2 Other Other (explain)Clinically unable to determine (explain)Thank you, Bertha Melgar, CCS, CDIS Use of terms such as suspected, likely, concern for, or probable (associated with a specific diagnosi s that is being evaluated, monitored, or treated as if it exists) are acceptable and can be coded in the inpatient se tting, when documented at the time of discharge. Please use your independent medical judgment in providing your response. THIS QUERY IS PART OF THE PERMANENT MEDICAL RECORD
--- NOTE | 2023-02-28 17:04 | P.CDIM_ITS ---
PROVIDER RESPONSE TEXT: To clarify, the appropriate diagnosis supported by the clinical indicators: Underweight QUERY TEXT: PHYSICIAN'S DOCUMENTATION REQUEST Date of Query: 02/27/2023 08:07 AM EDT Patient Name: Lee Perez Admit Date: 02/22/2023 Dear Chelle Kaplan, A review of the medical record indicates additional documentation may be needed. Please review below and update the documentation accordingly. Clinical Indicators: Clinical nutrition note 02/25 - Underweight with BMI 20 64.41kg Increased nutritional needs, increased demand protein, mild muscle mass depletion. Adding Ensure If possible, please provide an associated diagnosis related to the BMI, such as: Underweight Weight loss Other Other (explain)Clinically unable to determine (explain)Thank you, Bertha Melgar, CCS, CDIS Use of terms such as suspected, likely, concern for, or probable (associated with a specific diagnosi s that is being evaluated, monitored, or treated as if it exists) are acceptable and can be coded in the inpatient se tting, when documented at the time of discharge. Please use your independent medical judgment in providing your response. THIS QUERY IS PART OF THE PERMANENT MEDICAL RECORD
--- NOTE | 2023-02-28 17:04 | P.CDIM_ITS ---
PROVIDER RESPONSE TEXT: To clarify, the appropriate diagnosis supported by the clinical indicators: Diabetes mellitus Type 2 with hyperglycemia QUERY TEXT: PHYSICIAN'S DOCUMENTATION REQUEST Date of Query: 02/26/2023 07:56 AM EDT Patient Name: Lee Perez Admit Date: 02/22/2023 Dear Chelle Kaplan, A review of the medical record indicates additional documentation may be needed. Please review below and update the documentation accordingly. Clinical Indicators: LAB FINDINGS: Poc Glucose 329 H DM 2, lispro/A1c 7.7 Please clarify the following regarding the Complications of Diabetes Mellitus (DM): Diabetes mellitus Type 2 with hyperglycemia No complications of DM Other Other (explain)Clinically unable to determine (explain)Thank you, Bertha Melgar, CCS, CDIS Use of terms such as suspected, likely, concern for, or probable (associated with a specific diagnosi s that is being evaluated, monitored, or treated as if it exists) are acceptable and can be coded in the inpatient se tting, when documented at the time of discharge. Please use your independent medical judgment in providing your response. THIS QUERY IS PART OF THE PERMANENT MEDICAL RECORD
== END 2023-02-28 13:31 | disposition home health service (06) | DRG 638 ==
LOC: HO.ED 09:33 → HO.EDOVER 12:27 → HO.S3 02-23 05:44
PROVIDERS: Hospitalist; Physician Assistant; Admitting Provider Student in an Organized Health Care Education/Training Program; Emergency Provider Emergency Medicine; PCP Pediatrics; Visit Provider Family Medicine
PROC: 02HV33Z Insertion of Infusion Device into Superior Vena Cava, Percutaneous Approach (ICD-10-PCS; principal; 2023-02-26 12:00)
DX: E11.621 Type 2 diabetes mellitus with foot ulcer (principal); L97.429 Non-pressure chronic ulcer of left heel and midfoot with unspecified severity; M86.9 Osteomyelitis, unspecified; E11.628 Type 2 diabetes mellitus with other skin complications; E11.69 Type 2 diabetes mellitus with other specified complication; I10 Essential (primary) hypertension; E11.42 Type 2 diabetes mellitus with diabetic polyneuropathy; R63.6 Underweight; Z68.20 Body mass index [BMI] 20.0-20.9, adult; E11.51 Type 2 diabetes mellitus with diabetic peripheral angiopathy without gangrene; M65.072 Abscess of tendon sheath, left ankle and foot; E11.65 Type 2 diabetes mellitus with hyperglycemia; I70.202 Unspecified atherosclerosis of native arteries of extremities, left leg; B96.5 Pseudomonas (aeruginosa) (mallei) (pseudomallei) as the cause of diseases classified elsewhere; B95.62 Methicillin resistant Staphylococcus aureus infection as the cause of diseases classified elsewhere; N40.0 Benign prostatic hyperplasia without lower urinary tract symptoms; E78.5 Hyperlipidemia, unspecified; Z79.82 Long term (current) use of aspirin; Z79.84 Long term (current) use of oral hypoglycemic drugs; Z79.899 Other long term (current) drug therapy
CPT/HCPCS: 36415; 36573; 73610; 73620; 73723; 80048; 80053; 80202; 82550; 82565; 82947; 83036; 83605; 85025; 85027; 85652; 86140; 87040; 87070; 87077; 87186; 87205; 93926; 97162; 99285; A9585; C1751; J0878; J1650; J2543; J3370; J3371

== ENCOUNTER 2023-03-05 11:55 | Outpatient (REF) | payer MEDICARE, SELFPAY ==
[2023-03-05 11:59] LABS: MANUAL DIFF FLAG NO
[2023-03-05 12:03] LABS: Basophils Percent Auto 0.5 % (0-2); Eosinophils Absolute Auto 0.1 X10*3/uL (0.0-0.4); Eosinophils Percent Auto 0.7 % (0-4); Hematocrit 34.3 % (42.0-52.0); Hemoglobin 11.5 g/dl (14.0-18.0); Imm Gran Abs Auto 0.05 X10*3/uL (0.00-0.03); Imm Gran Pct Auto 0.6 % (0.0-0.4); Lymphocytes Absolute Auto 1.2 X10*3/uL (1.2-4.9); Lymphocytes Percent Auto 14.3 % (20-40); Mean Corpuscular HGB Conc 33.5 g/dl (31.0-36.0); Mean Corpuscular Hemoglobin 30.6 pg (27.0-33.0); Mean Corpuscular Volume 91.2 fL (80.0-98.0); Mean Platelet Volume 9.3 fL (9.4-12.4); Monocytes Absolute Auto 0.7 X10*3/uL (0.1-1.2); Monocytes Percent Auto 8.7 % (2-11); Neutrophils Absolute Auto 6.2 x10*3/uL (2.0-8.3); Neutrophils Percent Auto 75.2 % (45-73); Platelet Count 641 X10*3/uL (160-400); Red Blood Count 3.76 X10*6/uL (4.60-5.80); Red Cell Distribution Width 12.1 % (11.0-16.0); White Blood Count 8.2 X10*3/uL (4.8-10.8)
[2023-03-05 12:32] LABS: Anion Gap 16 (12-20); Blood Urea Nitrogen 26 mg/dL (9-16); Calcium 9.2 mg/dL (8.4-10.2); Carbon Dioxide 23 mmol/L (22-29); Chloride 101 mmol/L (96-108); Estimated Glomerular Filt Rate > 60; Glucose Random 246 mg/dL (60-115); Potassium 4.4 mmol/L (3.3-5.1); Sodium 136 mmol/L (135-145)
== END 2023-03-05 11:56 | disposition home or self-care (01) ==
LOC: HO.HVNA 11:55
PROVIDERS: Visit Provider Internal Medicine
DX: E11.621 Type 2 diabetes mellitus with foot ulcer (principal)
CPT/HCPCS: 36415; 80048; 82550; 85025

== ENCOUNTER 2023-03-06 07:28 | Day surgery (SDC) | payer MEDICARE, SELFPAY ==
[2023-03-06] VITALS (7 sets, daily range): BP systolic 101–147; BP diastolic 60–78; PULSE 75–89; RESP 16–18; TEMP 36.6–36.7; O2SAT 96–97; BMI 20.1
[2023-03-06 08:04] LABS: Glucose, Whole Blood 245 mg/dL (60-115)
--- NOTE | 2023-03-06 09:37 | PC.NURSE ---
One watch and one gold colored ring removed by patient and placed in patient labeled bag with belongings. Hearing aids x2 and glasses worn to radiology.
--- NOTE | 2023-03-06 11:30 | W.PM.OPN ---
Operative Note Operative Note Date of Service: 03/06/23 Narrative: Angiogram report from [facility] Preoperative diagnosis: Atherosclerosis of left lower extremity with nonhealing ulcer Postoperative diagnosis: Same Procedure: 1. Ultrasound-guided right common femoral access 2. Aortogram with left lower extremity runoff 3. Plasty of left peroneal artery 4. Plasty of left anterior tibial artery Surgeon:Anup Laura M.D., FACS, RPVI Surgical Corsetier:None Anesthesia: Local with moderate conscious sedation. Total intraservice moderate sedation time was 49 minutes. I monitored the patient's level of consciousness and physiologic status continuously throughout the procedure. Specimens:none Drains:none Estimated blood loss: Less than 10 ml Implant: None Indications: Pleasant 82-year-old gentleman with nonhealing left leg ulcer presents for endovascular intervention. The patient has signed the informed consent after reviewing risks, complications, benefits, and alternatives previously discussed with the patient. The patient was given the opportunity to ask any additional questions or voice any concerns. All questions were answered to the patient's satisfaction. Procedure in detail: Patient was brought to the angiography suite prior to which a time-out was called for patient identification and site verification. Bilateral groins were prepped and draped in the standard surgical fashion. Under ultrasound guidance right common femoral was punctured with micro puncture needle and wire. Subsequently a precision 4 Tajik sheath was then placed. [employer] wire was advanced to the level of the aorta. 4 Tajik Flush catheter was brought up and parked at the level of the renal arteries. Aortogram was then undertaken. Catheter was brought down to the level of the iliac bifurcation. Iliacs were subsequently imaged. Catheter was then brought in up and over to the left side SFA. Runoff study was then undertaken. At this time he was noted to have below-knee disease. We placed a 035 glidewire Advantage into the left SFA. We administered 5000 units of systemic heparin. After 5 minutes of circulation time we placed an up and over 6 Tajik sheath. We advanced and I have across down to the popliteal artery. Through this we brought in an 014 glidewire Advantage. First we were able to traverse the lesion is the peroneal artery. We confirmed true lumen by instilling contrast in the now be cross catheter. Once this was accomplished we plasty the proximal portion of the peroneal artery with a 3 x 20 balloon. Once this was accomplished we redirected the wire down the anterior tibial. We were able to make it midway down. We plasty this area with a 2.5 x 100 balloon. Multiple insufflation was required. Once this was all accomplished catheter wire sheath was removed. StarClose closure with device was deployed. Patient tolerated the procedure well. Returned to recovery with stable vitals. Interpretation of films: 1. Ultrasound demonstrates appropriate femoral puncture. Image of which was saved. 2. Aortogram demonstrates appropriate caliber aorta. Minimal disease. Appropriate take-off of the renals. 3. Iliac images demonstrate no significant disease 4. Left Leg Common femoral artery: No significant disease Profundus Femoris: No significant disease Superficial femoral artery: No significant disease Popliteal artery (p1,p2,p3): No significant disease Anterior tibial artery: Mild to moderate disease in the anterior tibial up to the mid calf. Beyond that occluded Peroneal artery: Disease in the proximal 3rd most dominant runoff all the way down to the foot Posterior tibial artery: Occludes in the proximal quarter Dorsalis pedis/plantar arch: Incomplete Conclusion: 1. Successful angioplasty of left anterior tibial and peroneal arteries 2. Anticoagulation status: Will require 6 months of aspirin and Plavix This note is constructed using voice recognition software. While every effort has been made to ensure accuracy, biscuit factory worker errors may have been included. Thank you for allowing me to participate in the care of your patient. Yours sincerely, Anup Laura MD, FACS, R.P.V.I.
== END 2023-03-06 13:35 | disposition home or self-care (01) ==
PROVIDERS: PCP Pediatrics; Visit Provider Surgery Vascular Surgery
DX: E11.51 Type 2 diabetes mellitus with diabetic peripheral angiopathy without gangrene (principal); Z79.84 Long term (current) use of oral hypoglycemic drugs; L97.825 Non-pressure chronic ulcer of other part of left lower leg with muscle involvement without evidence of necrosis; I70.248 Atherosclerosis of native arteries of left leg with ulceration of other part of lower leg
CPT/HCPCS: 37228; 37232; 76937; 82947; 99152; 99153; C1725; C1760; C1769; C1887; J1643; J2250; J3010; Q9967

== ENCOUNTER 2023-03-12 14:06 | Outpatient (REF) | payer MEDICARE, SELFPAY ==
[2023-03-12 14:12] LABS: MANUAL DIFF FLAG NO
[2023-03-12 14:20] LABS: Basophils Percent Auto 0.3 % (0-2); Eosinophils Absolute Auto 0.4 X10*3/uL (0.0-0.4); Eosinophils Percent Auto 3.5 % (0-4); Hematocrit 32.6 % (42.0-52.0); Hemoglobin 10.9 g/dl (14.0-18.0); Imm Gran Abs Auto 0.06 X10*3/uL (0.00-0.03); Imm Gran Pct Auto 0.6 % (0.0-0.4); Lymphocytes Absolute Auto 0.7 X10*3/uL (1.2-4.9); Lymphocytes Percent Auto 7.1 % (20-40); Mean Corpuscular HGB Conc 33.4 g/dl (31.0-36.0); Mean Corpuscular Hemoglobin 30.6 pg (27.0-33.0); Mean Corpuscular Volume 91.6 fL (80.0-98.0); Mean Platelet Volume 9.6 fL (9.4-12.4); Monocytes Absolute Auto 0.9 X10*3/uL (0.1-1.2); Monocytes Percent Auto 9.3 % (2-11); Neutrophils Absolute Auto 7.8 x10*3/uL (2.0-8.3); Neutrophils Percent Auto 79.2 % (45-73); Platelet Count 496 X10*3/uL (160-400); Red Blood Count 3.56 X10*6/uL (4.60-5.80); Red Cell Distribution Width 12.4 % (11.0-16.0); White Blood Count 9.9 X10*3/uL (4.8-10.8)
== END 2023-03-12 14:07 | disposition home or self-care (01) ==
LOC: HO.HVNA 14:06
PROVIDERS: Visit Provider Pediatrics
DX: M86.672 Other chronic osteomyelitis, left ankle and foot (principal); E11.51 Type 2 diabetes mellitus with diabetic peripheral angiopathy without gangrene
CPT/HCPCS: 36415; 85025

== ENCOUNTER 2023-03-13 10:54 | Outpatient (AMB) | payer MEDICARE, SELFPAY ==
[2023-03-13 11:26] VITALS: BP 128/70; PULSE 88; O2SAT 99; BMI 21.2
--- NOTE | 2023-03-13 11:26 | A.OFFVIS_ITS ---
Intake Vital Signs 03/13/23 11:26 Height 5 ft 10 in Weight 148 lb BMI 21.2 BP 128/70 Pulse 88 Pulse Oximetry (%) 99 Intake Visit Reasons: hospital f/u-vancomycin [employer] Required: No Allergies codeine Adverse Reaction (Verified 03/13/23 11:29) Dizziness [facility] hospital f/u-vancomycin HPI Details He has MRSA wound and Pseudomonas sensitive to Levaquin left foot wound. He is done with antibiotics on 04/05. CK is 117 and creatinine was .85. [facility]LY [facility], [facility] Medical History Diabetes S/P angiogram of extremity Surgical History History of hernia repair Social History Household Members: Spouse Housing: House Alcohol intake: never Patient Tobacco Use Status: Never used Tobacco service: No Review of Systems Const All systems reviewed & are unremarkable except as noted in HPI and below Physical Exam Vital Signs: Last Vital Signs Pulse 88 03/13/23 11:26 BP 128/70 03/13/23 11:26 Pulse Ox 99 03/13/23 11:26 BMI result Body Mass Index 21.2 Const Other: General: cooperative Orientation/consciousness: patient oriented x3 HEENT Head: Yes normal to inspection Mouth: Normal oral and palatal mucosa present Eyes General: appearance normal, both eyes and all related structures Pupils: Equal, round and reactive pupils present Resp Effort & Inspection: normal respiratory effort Cardio Rate: regular rate Rhythm: regular rhythm GI Palpation (GI): Soft to palpation and nontender General: Yes no CVA tenderness Back/Spine/Pelvis Back: no CVA tenderness Skin General skin exam: no rashes or lesions noted Neuro General: patient oriented x3 Cranial nerves: Yes CN's II-XII intact bilaterally and Yes Equal, round and reactive pupils present Extrem Other: left foot wound Psych Appearance: grossly normal Assessment & Plan Assessment & Plan (1) Diabetic foot ulcer: Comment: He has left foot wound Code(s): E11.621 - Type 2 diabetes mellitus with foot ulcer; L97.509 - Non-pressure chronic ulcer of other part of unspecified foot with unspecified severity Plan: Would continue antibiotics. See as scheduled. Coding Level of Care Code Est Pt Level 3 (90599) Diagnoses Diabetic foot ulcer E11.621; L97.509
== END 2023-03-13 11:47 | disposition home or self-care (01) ==
LOC: HO.HID 10:54
PROVIDERS: PCP Pediatrics; Visit Provider Internal Medicine
DX: E11.621 Type 2 diabetes mellitus with foot ulcer (principal); L97.509 Non-pressure chronic ulcer of other part of unspecified foot with unspecified severity
CPT/HCPCS: 99213

== ENCOUNTER → 2023-03-13 10:54 | Outpatient (BNVA) | payer MEDICARE, SELFPAY | PROVIDERS: PCP Pediatrics; Visit Provider Internal Medicine | DX: E11.621 Type 2 diabetes mellitus with foot ulcer (principal); L97.429 Non-pressure chronic ulcer of left heel and midfoot with unspecified severity; B96.5 Pseudomonas (aeruginosa) (mallei) (pseudomallei) as the cause of diseases classified elsewhere; Z16.20 Resistance to unspecified antibiotic | CPT/HCPCS: 99212 ==

== ENCOUNTER 2023-03-14 18:13 | Outpatient (REF) | payer MEDICARE, SELFPAY ==
[2023-03-14 19:06] LABS: Anion Gap 14 (12-20); Blood Urea Nitrogen 25 mg/dL (9-16); Calcium 9.6 mg/dL (8.4-10.2); Carbon Dioxide 24 mmol/L (22-29); Chloride 100 mmol/L (96-108); Estimated Glomerular Filt Rate > 60; Glucose Random 230 mg/dL (60-115); Potassium 4.2 mmol/L (3.3-5.1); Sodium 134 mmol/L (135-145)
== END 2023-03-14 18:14 | disposition home or self-care (01) ==
LOC: HO.HVNA 18:13
PROVIDERS: Visit Provider Pediatrics
DX: E11.621 Type 2 diabetes mellitus with foot ulcer (principal); M86.672 Other chronic osteomyelitis, left ankle and foot
CPT/HCPCS: 80048; 82550

== ENCOUNTER 2023-03-19 14:17 | Outpatient (REF) | payer MEDICARE, SELFPAY ==
[2023-03-19 14:37] LABS: Basophils Percent Auto 0.2 % (0-2); Eosinophils Absolute Auto 0.1 X10*3/uL (0.0-0.4); Eosinophils Percent Auto 0.7 % (0-4); Hematocrit 31.4 % (42.0-52.0); Hemoglobin 10.5 g/dl (14.0-18.0); Imm Gran Abs Auto 0.12 X10*3/uL (0.00-0.03); Imm Gran Pct Auto 0.8 % (0.0-0.4); Lymphocytes Absolute Auto 0.4 X10*3/uL (1.2-4.9); Lymphocytes Percent Auto 2.8 % (20-40); MANUAL DIFF FLAG SCAN; Mean Corpuscular HGB Conc 33.4 g/dl (31.0-36.0); Mean Corpuscular Hemoglobin 30.3 pg (27.0-33.0); Mean Corpuscular Volume 90.5 fL (80.0-98.0); Mean Platelet Volume 9.9 fL (9.4-12.4); Monocytes Absolute Auto 0.7 X10*3/uL (0.1-1.2); Monocytes Percent Auto 4.5 % (2-11); Neutrophils Absolute Auto 13.6 x10*3/uL (2.0-8.3); Platelet Count 411 X10*3/uL (160-400); Red Blood Count 3.47 X10*6/uL (4.60-5.80); Red Cell Distribution Width 13.1 % (11.0-16.0); SCAN SMEAR FLAG 1; White Blood Count 14.9 X10*3/uL (4.8-10.8)
[2023-03-19 15:09] LABS: SLIDE REVIEW VERIFIED
[2023-03-19 15:35] LABS: Anion Gap 17 (12-20); Blood Urea Nitrogen 23 mg/dL (9-16); Calcium 8.6 mg/dL (8.4-10.2); Carbon Dioxide 24 mmol/L (22-29); Chloride 95 mmol/L (96-108); Estimated Glomerular Filt Rate > 60; Glucose Random 355 mg/dL (60-115); Sodium 132 mmol/L (135-145)
== END 2023-03-19 14:18 | disposition home or self-care (01) ==
LOC: HO.HVNA 14:17
PROVIDERS: Visit Provider Pediatrics
DX: E11.621 Type 2 diabetes mellitus with foot ulcer (principal); L97.509 Non-pressure chronic ulcer of other part of unspecified foot with unspecified severity; M86.672 Other chronic osteomyelitis, left ankle and foot
CPT/HCPCS: 36415; 80048; 82550; 85025

== ENCOUNTER 2023-03-21 10:43 | Outpatient (AMB) | payer MEDICARE, SELFPAY ==
--- NOTE | 2023-03-21 10:41 | A.OFFVIS_ITS ---
Intake Vital Signs 03/21/23 10:42 Height 5 ft 10 in Weight 148 lb BMI 21.2 Intake Visit Reasons: 2wk post left leg angio 03/06/23 Intake Note: 2 week follow up Left LE Angio 03/06/23, pt states that his legs are feeling fine and he is having trouble ambulating but due to multle comorbities [facility] comes once a week for his PICC Line and [facility] 1 x per week for Left LE ulcer Accompanied by: Spouse Allergies codeine Adverse Reaction (Verified 03/21/23 10:49) Dizziness HPI 2wk post left leg angio 03/06/23 HPI Details Very pleasant 82-year-old gentleman presents for follow-up regarding left lower extremity endovascular intervention. He had done well. He had plasty left peroneal anterior tibial arteries. He continues to have this left lower extremity ulcer which extends from the back of the heel all the way on to the skill ease tendon. There is exposure of the Achilles tendon. He reports this began in October with some unknown cause. He has had uncontrolled blood sugars which has been difficult for him to manage. Of note his last hemoglobin A1c was 7.7. He now presents for postprocedure evaluation. [facility] Medical History Diabetes S/P angiogram of extremity Surgical History History of hernia repair Social History Household Members: Spouse Housing: House Alcohol intake: never Patient Tobacco Use Status: Never used Tobacco service: No Review of Systems Const All systems reviewed & are unremarkable except as noted in HPI and below Reports no additional complaints ENT Reports Normal hearing present Card Denies chest pain, Denies chest pain at rest, Denies chest pain with activity and Denies pedal edema Resp Denies cough GI Denies abdominal pain Musc Denies abnormal gait, Denies muscle cramps and Denies radiating pain into limb Skin/Breast Denies skin ulcer and Denies wounds Neuro Reports Normal hearing present and Denies abnormal gait Psych Reports no additional complaints Physical Exam Vital Signs: BMI result Body Mass Index 21.2 Const General: cooperative, healthy appearing and comfortable Orientation/consciousness: oriented to person, oriented to place and oriented to time HEENT Head: Yes normal to inspection Neck Neck: Yes normal visual inspection Carotids: no bruits Chest Chest palpation & inspection: normal inspection of the chest Resp Effort & Inspection: normal respiratory effort and able to speak in complete sentences Auscultation: clear to auscultation bilaterally, no crackles, no rales, no r honchi and no wheezes Cardio Other: Bilateral DP signals Rate: regular rate Rhythm: regular rhythm Heart sounds: S1 normal heart sound present and S2 normal heart sound present Bruits: no carotid bruits GI Inspection: Yes normal to inspection Skin Other: Left Achilles exposed tendon approximately 6 cm opening. Wounds: no wounds Hair: normal Neuro General: oriented to person, oriented to place and oriented to time Cranial nerves: Yes CN's II-XII intact bilaterally and Yes Normal hearing present Cognition (Neuro): normal cognition Motor exam (neuro): 5/5 motor strength present throughout Extrem Other: venous exam: No significant superficial varicosities or spider telang iectasias, minimal edema General: No clubbing, No cyanosis and No edema Psych Appearance: grossly normal Mental Status: mental status grossly normal Speech and movement: Normal speech and movement present Assessment & Plan Assessment & Plan (1) Diabetic foot ulcer: Comment: He has left foot wound Code(s): E11.621 - Type 2 diabetes mellitus with foot ulcer; L97.509 - Non-pressure chronic ulcer of other part of unspecified foot with unspecified severity Plan: He continues to have this left Achilles ulcer with exposed tendon. This to be quite difficult to heal over tendon. Will continue with conservative measures per the [facility]. In addition I will reach out to Orthopedics for their input as well. Will continue to monitor his status with you. (2) PAD (peripheral artery disease): Code(s): I73.9 - Peripheral vascular disease, unspecified Plan: He did well with endovascular intervention. He will require 6 months of aspirin and Plavix. We will schedule for 3 month surveillance arterial ultrasound. He is coming back in approximately 4 weeks just for wound check. At that time if it does not progress we may have to get more aggressive with possible operative debridement. Thank you for allowing us to assist in his care. If there are any questions or concerns please do not hesitate to contact us. Coding Level of Care Code Est Pt Level 4 (91793) Diagnoses Diabetic foot ulcer E11.621; L97.509 PAD (peripheral artery disease) I73.9
[2023-03-21 10:42] VITALS: BMI 21.2
== END 2023-03-21 11:25 | disposition home or self-care (01) ==
PROVIDERS: PCP Pediatrics; Visit Provider Surgery Vascular Surgery
DX: E11.621 Type 2 diabetes mellitus with foot ulcer (principal); L97.428 Non-pressure chronic ulcer of left heel and midfoot with other specified severity; I73.9 Peripheral vascular disease, unspecified
CPT/HCPCS: 99214

== ENCOUNTER → 2023-03-21 10:43 | Outpatient (BNVA) | payer MEDICARE, SELFPAY | PROVIDERS: PCP Pediatrics; Visit Provider Surgery Vascular Surgery | DX: E11.621 Type 2 diabetes mellitus with foot ulcer (principal); L97.509 Non-pressure chronic ulcer of other part of unspecified foot with unspecified severity; I73.9 Peripheral vascular disease, unspecified | CPT/HCPCS: 99212 ==